=== PATIENT | female | born 1935 | race Caucasian/White ===

== ENCOUNTER 2017-07-30 11:21 | Emergency (ER) | payer MEDICARE, OTHER ==
[2014-10-05 12:21] VITALS: Ht 172.7 cm; Wt 74.8 kg
[~2017-07-30] VITALS: Ht 172.7 cm; Wt 74.8 kg
[~2017-07-30 11:21] MED LIST changes: -FERR-53 PO; +FERR325T14 PO; -LORA-1455 PO; -OXYB5TAB80 PO
--- NOTE | 2017-07-30 11:25 | ER Report ---
History and Physical Time Seen By MD: 11:24 HPI/ROS CHIEF COMPLAINT: Nausea, stomach discomfort, headache, high blood pressure. HISTORY OF PRESENT ILLNESS: 81-year-old female patient presents to emergency room with complaint of nausea, some discomfort, headache, high blood pressure and urinary incontinence. Patient states that this has been going on since earlier today. She denies having any fevers, chills. Patient states she vomited a small amount 1. She states that she is not taking any medication for this. She states that she has been wearing several pads as she is leaking so much. She states that she wasn't feeling well and wanted to be evaluated. Patient does live at [facility]. Patient states she does have some pressure to her chest. REVIEW OF SYSTEMS: Respiratory: No cough, no dyspnea. Cardiovascular: As noted above. Gastrointestinal: As noted above. Musculoskeletal: No back pain. Allergies: Coded Allergies: Penicillins (Verified Allergy, Severe, hives, 05/18/17) Sulfa (Sulfonamide Antibiotics) (Verified Allergy, Severe, hives, 05/18/17 ) fluorescein (Verified Allergy, Severe, anaphylaxis, 05/18/17) codeine (Verified Allergy, Intermediate, 05/18/17) erythromycin base (Verified Allergy, Mild, 05/18/17) rofecoxib (Verified Allergy, Unknown, 05/18/17) morphine (Verified Adverse Reaction, Mild, GI upset, 05/18/17) Home Meds Active Scripts Lorazepam (ATIVAN) 0.5 Mg Tablet, 0.5 TAB PO BID, #7 TAB Prov:ASUNCION RICE 07/30/17 Oxybutynin Chloride (OXYBUTYNIN CHLORIDE ER) 5 Mg Tab.er.24, 5 MG PO QDAY for 14 Days, #14 TAB.SA Prov:ASUNCION RICE 07/30/17 Trazodone Hcl (TRAZODONE HCL) 100 Mg Tablet, 1 TAB PO QHS, #90 TAB 1 Refill Prov:MANUEL TAN APRN-C 07/24/17 Levothyroxine Sodium (LEVOTHYROXINE SODIUM) 100 Mcg Tablet, 1 TAB PO QDAY, #90 TAB 0 Refills Prov:MANUEL TAN APRN-C 07/18/17 Pantoprazole Sodium (PROTONIX) 40 Mg Tablet.dr, 1 CAP PO QDAY, #90 TAB.SR 4 Refills Prov:JULIO REYEZ MD 07/18/17 Warfarin Sodium (WARFARIN SODIUM) 5 Mg Tablet, 5 MG PO QDAY for 30 Days, #102 TAB 2 Refills [place] 5 MG, M 5 MG, Tu 5 MG, W 7.5 MG, Th 5 MG, F 5 MG, Sa 7.5 MG Prov:BUZZ CROSS PHARMD 07/16/17 Folic Acid (FOLIC ACID) 1 Mg Tablet, 1 TAB PO QDAY, #90 TAB 3 Refills Prov:MANUEL TAN APRN INTERNAL SALES ENGINEER-C 05/21/17 Clonidine Hcl (CLONIDINE HCL) 0.1 Mg Tablet, 1 TAB PO QHS, #30 TAB 5 Refills Prov:JULIO REYEZ MD 05/07/17 Ferrous Sulfate (FERROUS SULFATE) 325 Mg Tablet, 1 TAB PO BID, #180 TAB 3 Refills Prov:JULIO REYEZ MD 03/27/17 Polyethylene Glycol 3350 (MIRALAX) 17 Gm Powd.pack, 17 GM PO QDAY Y for CONSTIPATION, #30 PKT 3 Refills Prov:JULIO REYEZ MD 02/22/17 Valsartan (Valsartan) 320 Mg Tablet, 1 TAB PO DAILY, #90 TAB 4 Refills Prov:JULIO REYEZ MD 01/23/17 Pen Needle, Diabetic (Insulin Pen Needle) 31 Gauge X 1/6" Dis.needle, EA MC Q30D , #100 12 Refills USE TO ADMINISTER INSULIN DAILY Prov:JULIO REYEZ MD 01/16/17 Insulin Glargine,Hum.rec.anlog (LANTUS SOLOSTAR) 100 Unit/1 Ml Insuln.pen, 20 UNIT SQ DAILY, #1 BOX 12 Refills Prov:JULIO REYEZ MD 10/31/16 Blood Sugar Diagnostic (FREESTYLE LITE STRIPS) 1 Each Strip, 2 EACH MC Q30D, # 100 STRIP 11 Refills Use to test blood sugars twice daily Prov:JULIO REYEZ MD 09/19/16 Albuterol Sulfate (ALBUTEROL SULFATE) 2.5 Mg/0.5 Ml Vial.neb, 2.5 MG IH Q1H Y for WHEEZING, #90 INHALER 4 Refills Prov:MANUEL TAN APRN INTERNAL SALES ENGINEER-C 06/19/16 Aspirin (ASPIRIN) 325 Mg Tablet, 1 TAB PO Q4-6H Y for PAIN, #30 TAB 4 Refills to use for chest pain PRN Prov:MANUEL TAN APRN INTERNAL SALES ENGINEER-C 06/15/16 Polyvinyl Alcohol/Povidone (ARTIFICIAL TEARS DROPS) 15 Ml Drops, 1 DROP OP PRN, #1 BOTTLE 4 Refills 1 drop into each eye as needed for dry or irritated eyes Prov:MANUEL TNA APRN INTERNAL SALES ENGINEER-C 06/15/16 Calcium Carbonate (TUMS) 300 Mg Tab.chew, 2 TAB PO Q2H Y for GAS/HEARTBURN, #60 TAB.CHEW 5 Refills Prov:MANUEL TAN APRNP-C 06/15/16 Acetaminophen (ACETAMINOPHEN) 500 Mg Tablet, 1 TAB PO Q4-6H Y for PAIN, #30 TAB 4 Refills Prov:MANUEL TAN APRN INTERNAL SALES ENGINEER-C 06/15/16 Vitamin B Complex (VITAMIN B COMPLEX) 1 Each Capsule, 1 TAB PO DAILY, #30 CAPSULE 11 Refills daily in the afternoon Prov:MANUEL TAN APRN INTERNAL SALES ENGINEER-C 06/15/16 Cyanocobalamin (Vitamin B-12) (VITAMIN B-12) 500 Mcg Tablet, 1 TAB PO DAILY, # 90 TAB 3 Refills Prov:MANUEL TAN APRN INTERNAL SALES ENGINEER-C 06/15/16 Lactobacillus Acidophilus (ACIDOPHILUS LACTOBACILLUS) 1 Each Capsule, 1 TAB PO QDAY, #90 CAPSULE 3 Refills Prov:MANUEL TAN APRN INTERNAL SALES ENGINEER-C 06/15/16 Hydrocortisone Acetate (HYDROCORTISONE ACETATE) 25 Mg Supp.rect, 1 SUPP.RECT RC BID, #60 SUPP.RECT Prov:MANUEL TAN APRN INTERNAL SALES ENGINEER-C 06/15/16 Carvedilol (CARVEDILOL) 12.5 Mg Tablet, 1 TAB PO BID, #180 TAB 2 Refills Prov:MANUEL TAN APRN INTERNAL SALES ENGINEER-C 06/15/16 Cholecalciferol (Vitamin D3) (VITAMIN D3) 1,000 Unit Capsule, 1000 UNIT PO BID, #60 CAPSULE 11 Refills Prov:MANUEL TAN APRN INTERNAL SALES ENGINEER-C 06/15/16 Nitroglycerin (NITROSTAT) 0.4 Mg Subl, 0.4 MG SL Q5MIN, #15 TAB 0 Refills Prov:LESLIE BILL MD 08/04/15 Reported Medications Magnesium Hydroxide (MILK OF MAGNESIA) 400 Mg/5 Ml Oral.susp, 5 ML PO PRN, BOTTLE 05/18/17 Mag Hydrox/Al Hydrox/Simeth (VT ACID SUSPENSION) 355 Ml Oral.susp, 5 ML PO BID Y for DYSPEPSIA 05/18/17 Loperamide HCl (Imodium A-D) 2 Mg Capsule, 1 CAP PO after each loose 05/18/17 Acetaminophen (Acetaminophen) 325 Mg Capsule, 1-2 TAB PO Q4-6H 05/18/17 Amlodipine Besylate (AMLODIPINE BESYLATE) 5 Mg Tablet, 1 TAB PO QDAY, TAB 05/07/17 Atorvastatin Calcium (ATORVASTATIN CALCIUM) 10 Mg Tablet, 1 TAB PO QDAY, TAB 05/07/17 Vit A/Vit C/Vit E/Zinc/Copper (PRESERVISION AREDS TABLET) 1 Each Tablet, 1 TAB PO BID, TAB 06/26/16 Oxygen (Oxygen) 2 L Inha, 2 L INH cont 10/22/12 Past Medical/Surgical History Patient has a past medical history of TIA, CVA, migraine, VT, angina, A. fib, DVT, PE, hypertension, hyperlipidemia, asthma, pneumonia, COPD, cholecystitis, urinary frequency, urinary incontinence, frequent UTIs, arthritis, back pain, diabetes, depression, skin cancer. Patient has surgical history of CABG, coronary stents, pacemaker, cholecystectomy, EGD, bladder repair, hysterectomy, knee surgery, neck surgery, right shoulder surgery, cataract surgery, skin biopsy. Patient has a family medical history of cancer, CAD, stroke. Reviewed Nurses Notes: Yes Hx Smoking: Yes Smoking Status: Former Smoker Exposure to Second Hand Smoke?: No Hx Substance Use Disorder: No Hx Alcohol Use: No Constitutional Vital Sign - Last 24 Hours 07/30/17 07/30/17 07/30/17 07/30/17 11:19 11:21 11:22 11:30 Temp 97.5 Pulse 60 ??? Resp 16 B/P (MAP) 150/120 150/120 (130) 161/104 (123) Pulse Ox 97 O2 Delivery Nasal Cannula 07/30/17 07/30/17 07/30/17 07/30/17 11:36 11:40 11:51 11:56 Pulse 60 ? Resp 14 Pulse Ox 97 O2 Flow Rate 3.0 07/30/17 07/30/17 07/30/17 07/30/17 12:00 12:26 12:30 12:41 Pulse 60 60 Resp 8 18 B/P (MAP) 148/94 (112) 148/81 (103) Pulse Ox 99 99 07/30/17 07/30/17 07/30/17 07/30/17 12:56 13:00 13:11 13:26 Pulse 60 65 60 Resp 8 13 19 B/P (MAP) 160/100 (120) Pulse Ox 98 98 98 07/30/17 07/30/17 13:30 13:41 Pulse 60 Resp 18 B/P (MAP) 132/65 (87) Pulse Ox 98 Intake and Output 07/30/17 07/30/17 07/31/17 15:00 23:00 07:00 Output Total 250 ml Balance -250 ml Physical Exam General Appearance: The patient is alert, has no immediate need for airway protection and no current signs of toxicity. ENT: Tympanic membranes are pearly-dela cruz, auditory canals are patent, mixed mucous membranes moist. Respiratory: Chest is non tender, lungs are clear to auscultation. Cardiac: regular rate and rhythm Gastrointestinal: Abdomen is soft and non tender, no masses, bowel sounds normal. Musculoskeletal: Neck: Neck is supple and tender in the left upper quadrant. Extremities have full range of motion and are non tender. Skin: No rashes or lesions. DIFFERENTIAL DIAGNOSIS: After history and physical exam differential diagnosis was considered for urinary tract infection, diverticulitis, VT, pneumonia. Medical Decision Making Data Points Result Diagram: 07/30/17 1123 07/30/17 1123 Laboratory Hematology Test 07/30/17 11:23 07/30/17 12:50 Red Blood Count 5.29 M/uL (4.17-5.56) Mean Corpuscular Volume 83.2 fL (80.0-96.0) Mean Corpuscular Hemoglobin 28.1 pg (26.0-33.0) Mean Corpuscular Hemoglobin Concent 33.8 g/dL (32.0-36.0) Red Cell Distribution Width 14.1 % (11.5-14.5) Mean Platelet Volume 8.2 fL (7.2-11.1) Neutrophils (%) (Auto) 65.8 % (39.4-72.5) Lymphocytes (%) (Auto) 15.5 % (17.6-49.6) Monocytes (%) (Auto) 12.8 % (4.1-12.4) Eosinophils (%) (Auto) 4.9 % (0.4-6.7) Basophils (%) (Auto) 1.0 % (0.3-1.4) Nucleated RBC Relative Count (auto) 0.0 /100WBC Neutrophils # (Auto) 2.4 K/uL (2.0-7.4) Lymphocytes # (Auto) 0.6 K/uL (1.3-3.6) Monocytes # (Auto) 0.5 K/uL (0.3-1.0) Eosinophils # (Auto) 0.2 K/uL (0.0-0.5) Basophils # (Auto) 0.0 K/uL (0.0-0.1) Nucleated RBC Absolute Count (auto) 0.00 K/uL Sodium Level 140 mmol/L (137-145) Potassium Level 4.0 mmol/L (3.5-5.0) Chloride Level 100 mmol/L (98-107) Carbon Dioxide Level 29 mmol/L (22-31) Blood Urea Nitrogen 15 mg/dl (7-18) Creatinine 0.70 mg/dl (0.52-1.04) Glomerular Filtration Rate Calc > 60.0 Random Glucose 134 mg/dl (75-110) Calcium Level 9.0 mg/dl (8.4-10.2) Total Bilirubin 0.6 mg/dl (0.2-1.3) Aspartate Amino Transf (AST/SGOT) 34 U/L (0-35) Alanine Aminotransferase (ALT/SGPT) 35 U/L (0-56) Alkaline Phosphatase 90 U/L (0-126) Troponin I < 0.012 ng/ml Total Protein 8.1 gm/dl (6.3-8.2) Albumin 4.6 g/dl (3.5-5.0) Amylase Level 61 U/L (0-110) Lipase 97 U/L (23-300) Urine Color Straw Urine Clarity Clear Urine pH 8.0 pH (4.8-9.5) Urine Specific [place] 1.010 Urine Protein Negative mg/dL (NEGATIVE) Urine Glucose (UA) Negative mg/dL (NEGATIVE) Urine Ketones Negative mg/dL (NEGATIVE) Urine Blood Negative (NEGATIVE) Urine Nitrite Negative (NEGATIVE) Urine Bilirubin Negative (NEGATIVE) Urine Urobilinogen Negative mg/dL (0.2-1.9) Urine Leukocyte Esterase Negative (NEGATIVE) Urine RBC None /HPF (0-2/HPF) Urine WBC <1 /HPF (0-5/HPF) Urine Squamous Epithelial Cells None /LPF (NONE-FEW) Urine Bacteria Negative /HPF (NONE-FEW) Urine Mucus None /HPF (NONE-FEW) Chemistry Test 07/30/17 11:23 07/30/17 12:50 White Blood Count 3.7 k/uL (4.5-11.0) Red Blood Count 5.29 M/uL (4.17-5.56) Hemoglobin 14.9 g/dL (12.0-16.0) Hematocrit 44.0 % (34.0-47.0) Mean Corpuscular Volume 83.2 fL (80.0-96.0) Mean Corpuscular Hemoglobin 28.1 pg (26.0-33.0) Mean Corpuscular Hemoglobin Concent 33.8 g/dL (32.0-36.0) Red Cell Distribution Width 14.1 % (11.5-14.5) Platelet Count 200 K/uL (150-450) Mean Platelet Volume 8.2 fL (7.2-11.1) Neutrophils (%) (Auto) 65.8 % (39.4-72.5) Lymphocytes (%) (Auto) 15.5 % (17.6-49.6) Monocytes (%) (Auto) 12.8 % (4.1-12.4) Eosinophils (%) (Auto) 4.9 % (0.4-6.7) Basophils (%) (Auto) 1.0 % (0.3-1.4) Nucleated RBC Relative Count (auto) 0.0 /100WBC Neutrophils # (Auto) 2.4 K/uL (2.0-7.4) Lymphocytes # (Auto) 0.6 K/uL (1.3-3.6) Monocytes # (Auto) 0.5 K/uL (0.3-1.0) Eosinophils # (Auto) 0.2 K/uL (0.0-0.5) Basophils # (Auto) 0.0 K/uL (0.0-0.1) Nucleated RBC Absolute Count (auto) 0.00 K/uL Glomerular Filtration Rate Calc > 60.0 Calcium Level 9.0 mg/dl (8.4-10.2) Total Bilirubin 0.6 mg/dl (0.2-1.3) Aspartate Amino Transf (AST/SGOT) 34 U/L (0-35) Alanine Aminotransferase (ALT/SGPT) 35 U/L (0-56) Alkaline Phosphatase 90 U/L (0-126) Troponin I < 0.012 ng/ml Total Protein 8.1 gm/dl (6.3-8.2) Albumin 4.6 g/dl (3.5-5.0) Amylase Level 61 U/L (0-110) Lipase 97 U/L (23-300) Urine Color Straw Urine Clarity Clear Urine pH 8.0 pH (4.8-9.5) Urine Specific [place] 1.010 Urine Protein Negative mg/dL (NEGATIVE) Urine Glucose (UA) Negative mg/dL (NEGATIVE) Urine Ketones Negative mg/dL (NEGATIVE) Urine Blood Negative (NEGATIVE) Urine Nitrite Negative (NEGATIVE) Urine Bilirubin Negative (NEGATIVE) Urine Urobilinogen Negative mg/dL (0.2-1.9) Urine Leukocyte Esterase Negative (NEGATIVE) Urine RBC None /HPF (0-2/HPF) Urine WBC <1 /HPF (0-5/HPF) Urine Squamous Epithelial Cells None /LPF (NONE-FEW) Urine Bacteria Negative /HPF (NONE-FEW) Urine Mucus None /HPF (NONE-FEW) Urinalysis Test 07/30/17 12:50 Urine Color Straw Urine Clarity Clear Urine pH 8.0 pH (4.8-9.5) Urine Specific [place] 1.010 Urine Protein Negative mg/dL (NEGATIVE) Urine Glucose (UA) Negative mg/dL (NEGATIVE) Urine Ketones Negative mg/dL (NEGATIVE) Urine Blood Negative (NEGATIVE) Urine Nitrite Negative (NEGATIVE) Urine Bilirubin Negative (NEGATIVE) Urine Urobilinogen Negative mg/dL (0.2-1.9) Urine Leukocyte Esterase Negative (NEGATIVE) Urine RBC None /HPF (0-2/HPF) Urine WBC <1 /HPF (0-5/HPF) Urine Squamous Epithelial Cells None /LPF (NONE-FEW) Urine Bacteria Negative /HPF (NONE-FEW) Urine Mucus None /HPF (NONE-FEW) EKG/Imaging EKG Interpretation 12 lead EKG: Rhythm: normal sinus rhythm [place]: normal QRS: normal ST segments: normal Imaging Exam type: CHEST PA AND LAT History: chest pain Comparison: April 30, 2017. Findings: Mild chronic. Bronchial thickening is again seen throughout the lungs. Others no evidence of focal infiltrates pleural effusions or pulmonary edema. Cardiac silhouette is upper limits of normal in size. There are sternotomy sutures present, coronary artery stent and and dual lead pacemaker. Post surgical changes of the right shoulder also again noted. Incompletely imaged are postsurgical changes of the lower cervical spine. There is moderate ectasia the thoracic aorta and moderate spondylotic changes of the thoracic spine IMPRESSION: 1. Chronic peribronchial thickening although no evidence of acute pulmonary consolidation Report Dictated By: Grace Holman MD at 07/30/2017 12:26 PM Report E-Signed By: Grace Holman MD at 07/30/2017 12:28 PM ED Course/Re-evaluation ED Course Patient was admitted to an exam room, history and physical were obtained. Differential diagnoses were considered. On examination lungs are clear, heart is regular, patient was alert and oriented. Her blood pressure initially was elevated at 150/120. An IV was started, CBC, CMP, urinalysis, a troponin, EKG were done. The labs were unremarkable. A chest x-ray was also done. That showed no acute cardiopulmonary processes. On reevaluation patient was having significant cramping in her lower extremities. I did try to massage was out for a few moments. There is no improvement. We did give the patient 0.5 mg of Ativan IV. That helped significantly with her cramping. Patient states she's feeling significantly improved after that. I did discuss the findings of the x- ray as well as labs with patient. Patient had a normal EKG. We will go ahead and discharge patient home at this time. Patient was given a prescription for Ativan 0.5 mg, one half tab twice a day as needed for spasm. We will also treat her bladder spasms with oxybutynin and have her follow-up with Dr. Conner in the next 2 weeks. Patient verbalized understanding and agreement. Blood pressure dropped down to 132/64 prior to discharge. We will go ahead and discharge patient back to [facility]. Decision to Disposition Date: Jul 30, 2017 Decision to Disposition Time: 14:03 Depart Departure Latest Vital Signs Vital Signs Date Time Temp Pulse Resp B/P (MAP) Pulse Ox O2 Delivery O2 Flow Rate FiO2 07/30/17 13:41 60 18 98 07/30/17 13:30 132/65 (87) 07/30/17 11:40 3.0 07/30/17 11:19 97.5 Nasal Cannula Impression: Primary Impression: Viral syndrome Additional Impressions: Muscle spasm Bladder spasm Condition: Improved Disposition: HOME OR SELF-CARE Referrals: JULIO REYEZ MD (PCP) New Scripts Lorazepam (ATIVAN) 0.5 Mg Tablet 0.5 TAB PO BID, #7 TAB Prov: ASUNCION RICE 07/30/17 Oxybutynin Chloride (OXYBUTYNIN CHLORIDE ER) 5 Mg Tab.er.24 5 MG PO QDAY for 14 Days, #14 TAB.SA Prov: ASUNCION RICE 07/30/17 Patient Instructions: Viral Syndrome (ED) Additional Instructions: Increase fluid intake. Get plenty of rest. Follow up with your primary care provider in the next 3-4 days. Follow up with Dr. Conner in the next 1-2 weeks. Return to the ER if condition worsens. Take your medication as prescribed. Problem Qualifiers ASUNCION RICE Jul 30, 2017 11:25
[2017-07-30 11:44] LABS: PLATELET COUNT, AUTOMATED 200 K/uL (150-450)
--- NOTE | 2017-07-30 12:19 | EKG ---
FACILITY: [facility] PATIENT NAME: LACI QUIROZ : [id number] MR: [id number] V: [id number] EXAM DATE: ORDERING PHYSICIAN: ASUNCION RICE TECHNOLOGIST: Steven Curry Reason : Blood Pressure : / mmHG Vent. Rate : 060 BPM Atrial Rate : 060 BPM P-R Int : 206 ms QRS Dur : 084 ms QT Int : 442 ms P-R-T Axes : 000 016 040 degrees QTc Int : [address]-t abnormalities When compared with ECG of 21-SEP-2015 15:25, Unchanged Confirmed by ESCOBAR GILL ([id number]) on 07/31/2017 1:49:43 AM Referred By: Confirmed By:ESCOBAR GILL
--- NOTE | 2017-07-30 12:32 | RADIOLOGY IMAGING REPORT ---
FACILITY: [facility] [place] PATIENT NAME: Reina Ocasio : 1935 MR: [id number] V: [id number] EXAM DATE: ORDERING PHYSICIAN: ASUNCION RICE TECHNOLOGIST: Location: [facility] [place] Patient: Reina Ocasio : 1935 Visit/Account:[id number] Date of Sevice: 07/30/2017 Exam type: CHEST PA AND LAT History: chest pain Comparison: April 30, 2017. Findings: Mild chronic. Bronchial thickening is again seen throughout the lungs. Others no evidence of focal infiltrates pleural effusions or pulmonary edema. Cardiac silhouette is upper limits of normal in si ze. There are sternotomy sutures present, coronary artery stent and and dual lead pacemaker. Post s urgical changes of the right shoulder also again noted. Incompletely imaged are postsurgical changes of the lower cervical spine. There is moderate ectasia the thoracic aorta and moderate spondylotic changes of the thoracic spine IMPRESSION: 1. Chronic peribronchial thickening although no evidence of acute pulmonary consolidation Report Dictated By: Grace Holman MD at 07/30/2017 12:26 PM Report E-Signed By: Grace Holman MD at 07/30/2017 12:28 PM WSN:[email or web address]
[2017-07-30] MEDS ORDERED: ONDANSETRON 4 MG/2 ML VIAL IVP ONE (12:35)
[2017-07-30] MEDS ORDERED: LORazepam 2 MG/ML VIAL IVP ONE (13:10)
[2017-07-30 13:30] VITALS: BP 132/65
[2017-07-30] MEDS ORDERED: OXYB5TAB80 PO (14:01)
[2017-07-30] MEDS ORDERED: LORA-1455 PO (14:01)
== END 2017-07-30 14:47 | disposition home or self-care (01) ==
LOC: ER 11:28
DX: B34.9 Viral infection, unspecified (principal); M62.838 Other muscle spasm; N32.89 Other specified disorders of bladder
CPT/HCPCS: 71046; 81001; 82150; 83690; 84484; 85025; 93005; 96374; 96375; 99284; A4353; J2060; J2405; 82040; 82247; 82310; 82374; 82435; 82565; 82947; 84075; 84132; 84155; 84295; 84450; 84460; 84520

== ENCOUNTER → 2017-07-30 | Outpatient (CLI) | payer MEDICARE, OTHER ==
[2014-10-05 12:21] VITALS: BMI 26.5
[~2017-07-30] MED LIST: ACE325 PO; ACET-2031 PO; ACET-2043 PO; ACET325C PO; ACET500T68 PO; ALB0.5 IH; AMI200 PO; AML5 PO; AMLO-1 PO; AMLO-101 PO; AMLO-96 PO; ASC500 PO; ASCO-182 PO; ASPI-757 PO; ATOR10TA65 PO; ATOR20TA65 PO; BACL-1 PO; BLOO-1777 MC; CA C1TAB85 PO; CALC-521 PO; CALC-547 PO; CALC1CAP19 PO; CALC600T63 PO; CALC600T72 PO; CAR6.25 PO; CARV12.577 PO; CARV12.578 PO; CELE-1 PO; CHOL100059 PO; CLIN300C99 PO; CLO75 PO; CLON-327 PO; CYAN25007 SL; CYAN500T38 PO; DILT240C76 PO; DOCU-416 PO; DOX100 PO; ESOM40CA42 PO; EZET1TAB53 PO; FAM20 PO; FAMO40TA62 PO; FERR-53 PO; FERR159T PO; FERR27TA3 PO; FOL1 PO; FOLI-68 PO; FOLTX PO; GAB300 PO; GABA-1 PO; GABA-549 PO; GUAI600T57 PO; HCTZ25 PO; HUM100VI2 SUBQ; HUM7030I SC; HUM7030I SQ; HYDR25SU34 RC; INSU100I30 SQ; INSU100V26 SC; IRON200V IV; LACT1CAP6 PO; LACT1CAP78 PO; LEV125 PO; LEVO-3 PO; LEVO137T23 PO; LEVO50TA86 PO; LEVO75TA73 PO; LOPE-109 PO; LOPE2CAP15 PO; LOR5/325 PO; LORA-1455 PO; MECL25TA27 PO; MECL25TA9 PO; MEMA10TA18 PO; MEMA10TA19 PO; MIRA50TA PO; MOM PO; MULT1CAP41 PO; NIT4 SL; NITR-105 PO; NSNAS; OFF WARFARIN; ONDA4TAB PO; ONDA4TAB97 PO; OXYB5TAB80 PO; OXYB5TAB86 PO; OXYGEN INH; PANT40TA13 PO; PANT40TA63 PO; PAR20 PO; PARO-46 PO; PARO20TA4 PO; PARO30TA70 PO; PEN1DIS.48 MC; PNEU0.5D3 IM; POLY15DR54 OP; POLY17PO25 PO; POTA2TAB29 PO; RIVA10TA PO; SENN-284 PO; SIMV-42 PO; SOL5 PO; SUCR1TAB85 PO; TRAM-420 PO; TRAZ-133 PO; TRAZ-163 PO; TRILI135PT PO; TRILIPIX; Tramadol Hcl PO; VAL80 PO; VALS160T22 PO; VALS1TAB2 PO; VALS1TAB80 PO; VALS1TAB96 PO; VALS320T PEG; VALS320T PO; VIT-9 PO; VIT1CAPS32 PO; VITA1CAP46 PO; VITA1CAP55 PO; WAR1 PO; WAR75 PO; WARF-18 PO; WARF10TA29 PO; WARF2.5T11 PO; WARFARIN; [UNRECOGNIZED DRUG - CODE] PO; [UNRECOGNIZED DRUG - CODE] PO; [UNRECOGNIZED DRUG - CODE] PO; [UNRECOGNIZED DRUG - CODE] PO; [UNRECOGNIZED DRUG - CODE] TP; iron sulfate PO; lacrilube OU
== END ==
LOC: AMB 10:57
PROVIDERS: ATTEND Nurse Practitioner
DX: E86.0 Dehydration (principal); R42 Dizziness and giddiness; I10 Essential (primary) hypertension; I48.91 Unspecified atrial fibrillation
CPT/HCPCS: A0425; A0427

== ENCOUNTER 2017-08-12 13:29 | Emergency (ER) | payer MEDICARE, OTHER ==
[2014-10-05 12:21] VITALS: Ht 172.7 cm; Wt 74.8 kg
[~2017-08-12] VITALS: Ht 172.7 cm; Wt 74.8 kg
--- NOTE | 2017-08-12 13:37 | ER Report ---
History and Physical Time Seen By MD: 13:36 HPI/ROS CHIEF COMPLAINT: Chest pain HISTORY OF PRESENT ILLNESS: This is an 81-year-old female who presents to the emergency department for chest pain. The patient is a resident of [facility]. Patient states she woke up at about 4:30 this morning felt fine, went to breakfast at about 8:00 while she was sitting there she began to have some chest pain migrating into her left chest up into her jaw bilaterally. Patient denies nausea or vomiting. She was given 3 nitroglycerin at [facility] with no relief of her chest pain, at which time they elected to send her to the emergency department for further evaluation. Patient arrives alert and oriented no acute distress. Patient also states that she has had some increased shortness of breath this morning along with chest pressure. Patient denies aches , chills. Patient also states that it's been about 3 days since her last normal bowel movement, she's had small firm stools since then but not normal. REVIEW OF SYSTEMS: Constitutional: No fever, no chills. Eyes: No discharge. ENT: No sore throat. Cardiovascular: As above. Respiratory: As above. Gastrointestinal: No abdominal pain, no vomiting. Genitourinary: No hematuria. Musculoskeletal: No back pain. Skin: No rashes. Neurological: No headache. Allergies: Coded Allergies: Penicillins (Verified Allergy, Severe, hives, 08/12/17) Sulfa (Sulfonamide Antibiotics) (Verified Allergy, Severe, hives, 08/12/17) fluorescein (Verified Allergy, Severe, anaphylaxis, 08/12/17) codeine (Verified Allergy, Intermediate, 08/12/17) erythromycin base (Verified Allergy, Mild, 08/12/17) rofecoxib (Verified Allergy, Unknown, 08/12/17) morphine (Verified Adverse Reaction, Mild, GI upset, 08/12/17) Home Meds Active Scripts Oxybutynin Chloride (OXYBUTYNIN CHLORIDE ER) 5 Mg Tab.er.24, 1 TAB PO QDAY, #90 TAB.SA 1 Refill Prov:JULIO REYEZ MD 08/09/17 Trazodone Hcl (TRAZODONE HCL) 100 Mg Tablet, 1 TAB PO QHS, #90 TAB 1 Refill Prov:MANUEL TAN APRN APPLICATION ARCHITECT-C 07/24/17 Levothyroxine Sodium (LEVOTHYROXINE SODIUM) 100 Mcg Tablet, 1 TAB PO QDAY, #90 TAB 0 Refills Prov:MANUEL TAN APRN [facility] 07/18/17 Pantoprazole Sodium (PROTONIX) 40 Mg Tablet.dr, 1 CAP PO QDAY, #90 TAB.SR 4 Refills Prov:JULIO REYEZ MD 07/18/17 Warfarin Sodium (WARFARIN SODIUM) 5 Mg Tablet, 5 MG PO QDAY for 30 Days, #102 TAB 2 Refills Pineda 5 MG, M 5 MG, Tu 5 MG, W 7.5 MG, Th 5 MG, F 5 MG, Sa 7.5 MG Prov:BUZZ CROSS PHARMD 07/16/17 Folic Acid (FOLIC ACID) 1 Mg Tablet, 1 TAB PO QDAY, #90 TAB 3 Refills Prov:MANUEL TAN APRN APPLICATION ARCHITECT-C 05/21/17 Clonidine Hcl (CLONIDINE HCL) 0.1 Mg Tablet, 1 TAB PO QHS, #30 TAB 5 Refills Prov:JULIO REYEZ MD 05/07/17 Ferrous Sulfate (FERROUS SULFATE) 325 Mg Tablet, 1 TAB PO BID, #180 TAB 3 Refills Prov:JULIO REYEZ MD 03/27/17 Polyethylene Glycol 3350 (MIRALAX) 17 Gm Powd.pack, 17 GM PO QDAY Y for CONSTIPATION, #30 PKT 3 Refills Prov:JULIO REYEZ MD 02/22/17 Valsartan (Valsartan) 320 Mg Tablet, 1 TAB PO DAILY, #90 TAB 4 Refills Prov:JULIO REYEZ MD 01/23/17 Pen Needle, Diabetic (Insulin Pen Needle) 31 Gauge X 1/6" Dis.needle, EA MC Q30D , #100 12 Refills USE TO ADMINISTER INSULIN DAILY Prov:JULIO REYEZ MD 01/16/17 Insulin Glargine,Hum.rec.anlog (LANTUS SOLOSTAR) 100 Unit/1 Ml Insuln.pen, 20 UNIT SQ DAILY, #1 BOX 12 Refills Prov:JULIO REYEZ MD 10/31/16 Blood Sugar Diagnostic (FREESTYLE LITE STRIPS) 1 Each Strip, 2 EACH MC Q30D, # 100 STRIP 11 Refills Use to test blood sugars twice daily Prov:JULIO REYEZ MD 09/19/16 Albuterol Sulfate (ALBUTEROL SULFATE) 2.5 Mg/0.5 Ml Vial.neb, 2.5 MG IH Q1H Y for WHEEZING, #90 INHALER 4 Refills Prov:MANUEL TAN APRNP-C 06/19/16 Aspirin (ASPIRIN) 325 Mg Tablet, 1 TAB PO Q4-6H Y for PAIN, #30 TAB 4 Refills to use for chest pain PRN Prov:MANUEL TAN APRNP-C 06/15/16 Polyvinyl Alcohol/Povidone (ARTIFICIAL TEARS DROPS) 15 Ml Drops, 1 DROP OP PRN, #1 BOTTLE 4 Refills 1 drop into each eye as needed for dry or irritated eyes Prov:MANUEL TAN APRNP-C 06/15/16 Calcium Carbonate (TUMS) 300 Mg Tab.chew, 2 TAB PO Q2H Y for GAS/HEARTBURN, #60 TAB.CHEW 5 Refills Prov:MANUEL TAN APRNP-C 06/15/16 Acetaminophen (ACETAMINOPHEN) 500 Mg Tablet, 1 TAB PO Q4-6H Y for PAIN, #30 TAB 4 Refills Prov:MANUEL TAN APRNP-C 06/15/16 Vitamin B Complex (VITAMIN B COMPLEX) 1 Each Capsule, 1 TAB PO DAILY, #30 CAPSULE 11 Refills daily in the afternoon Prov:MANUEL TAN APRN APPLICATION ARCHITECT-C 06/15/16 Cyanocobalamin (Vitamin B-12) (VITAMIN B-12) 500 Mcg Tablet, 1 TAB PO DAILY, # 90 TAB 3 Refills Prov:MANUEL TAN APRN APPLICATION ARCHITECT-C 06/15/16 Lactobacillus Acidophilus (ACIDOPHILUS LACTOBACILLUS) 1 Each Capsule, 1 TAB PO QDAY, #90 CAPSULE 3 Refills Prov:MANUEL TAN APRN APPLICATION ARCHITECT-C 06/15/16 Hydrocortisone Acetate (HYDROCORTISONE ACETATE) 25 Mg Supp.rect, 1 SUPP.RECT RC BID, #60 SUPP.RECT Prov:MANUEL TAN APRN APPLICATION ARCHITECT-C 06/15/16 Carvedilol (CARVEDILOL) 12.5 Mg Tablet, 1 TAB PO BID, #180 TAB 2 Refills Prov:MANUEL TAN MARCELA APPLICATION ARCHITECT-C 06/15/16 Cholecalciferol (Vitamin D3) (VITAMIN D3) 1,000 Unit Capsule, 1000 UNIT PO BID, #60 CAPSULE 11 Refills Prov:MANUEL TAN MARCELA APPLICATION ARCHITECT-C 06/15/16 Nitroglycerin (NITROSTAT) 0.4 Mg Subl, 0.4 MG SL Q5MIN, #15 TAB 0 Refills Prov:LESLIE BILL MD 08/04/15 Reported Medications Magnesium Hydroxide (MILK OF MAGNESIA) 400 Mg/5 Ml Oral.susp, 5 ML PO PRN, BOTTLE 05/18/17 Mag Hydrox/Al Hydrox/Simeth (DE ACID SUSPENSION) 355 Ml Oral.susp, 5 ML PO BID Y for DYSPEPSIA 05/18/17 Loperamide HCl (Imodium A-D) 2 Mg Capsule, 1 CAP PO after each loose 05/18/17 Acetaminophen (Acetaminophen) 325 Mg Capsule, 1-2 TAB PO Q4-6H 05/18/17 Amlodipine Besylate (AMLODIPINE BESYLATE) 5 Mg Tablet, 1 TAB PO QDAY, TAB 05/07/17 Atorvastatin Calcium (ATORVASTATIN CALCIUM) 10 Mg Tablet, 1 TAB PO QDAY, TAB 05/07/17 Vit A/Vit C/Vit E/Zinc/Copper (PRESERVISION AREDS TABLET) 1 Each Tablet, 1 TAB PO BID, TAB 06/26/16 Oxygen (Oxygen) 2 L Inha, 2 L INH cont 10/22/12 Discontinued Scripts Lorazepam (ATIVAN) 0.5 Mg Tablet, 0.5 TAB PO BID, #7 TAB Prov:ASUNCION RICE [facility] 07/30/17 Oxybutynin Chloride (OXYBUTYNIN CHLORIDE ER) 5 Mg Tab.er.24, 5 MG PO QDAY for 14 Days, #14 TAB.SA Prov:ASUNCION RICE [facility] 07/30/17 Hx Smoking: Yes Smoking Status: Former Smoker Exposure to Second Hand Smoke?: No Hx Substance Use Disorder: No Hx Alcohol Use: No Constitutional Vital Sign - Last 24 Hours 08/12/17 08/12/17 08/12/17 08/12/17 13:36 13:36 13:37 13:39 Temp 97.7 Pulse 61 Resp 18 B/P (MAP) 162/154 (157) 153/71 (98) Pulse Ox 92 O2 Delivery Room Air O2 Flow Rate 2.0 08/12/17 08/12/17 08/12/17 08/12/17 14:00 14:24 14:30 15:00 Pulse 60 60 60 Resp 9 7 24 B/P (MAP) 123/71 (88) 141/65 (90) 137/66 (89) 132/65 (87) Pulse Ox 97 95 98 08/12/17 08/12/17 08/12/17 08/12/17 16:00 16:30 17:00 17:30 Pulse 60 78 60 60 Resp 13 14 12 20 B/P (MAP) 129/58 (81) 155/63 (93) 104/74 (84) 148/50 (82) Pulse Ox 100 93 99 08/12/17 08/12/17 18:00 18:00 Pulse 60 Resp 7 B/P (MAP) 134/62 (86) 134/62 (86) Pulse Ox 99 Physical Exam General Appearance: The patient is alert, has no immediate need for airway protection and no signs of toxicity. Eyes: Pupils equal and round no pallor or injection. ENT, Mouth: Mucous membranes are moist. Respiratory: There are no retractions, lungs are clear to auscultation. Cardiovascular: Regular rate and rhythm, no murmurs, clicks or rubs. Gastrointestinal: Abdomen is soft with tenderness to the left upper and lower quadrants, no masses, hypoactive bowel sounds in the upper quadrants, very few distant tinkles in the lower quadrants. Neurological: Alert and oriented 4. Moving all extremity. Following all commands. No focal neuro deficits. Skin: Warm and dry, no rashes. Musculoskeletal: Neck is supple non tender. Extremities are nontender, nonswollen and have full range of motion. DIFFERENTIAL DIAGNOSIS: After history and physical exam differential diagnosis was considered for chest pain including but not limited to myocardial ischemia, pericarditis pulmonary embolus, chest wall pain, pleural inflammation and pulmonary infectious causes, constipation bowel obstruction. Medical Decision Making Data Points Result Diagram: 08/12/17 1350 08/12/17 1350 Laboratory Hematology Test 08/12/17 13:50 08/12/17 17:42 Red Blood Count 4.94 M/uL (4.17-5.56) Mean Corpuscular Volume 84.0 fL (80.0-96.0) Mean Corpuscular Hemoglobin 27.3 pg (26.0-33.0) Mean Corpuscular Hemoglobin Concent 32.5 g/dL (32.0-36.0) Red Cell Distribution Width 14.3 % (11.5-14.5) Mean Platelet Volume 9.3 fL (7.2-11.1) Neutrophils (%) (Auto) 74.9 % (39.4-72.5) Lymphocytes (%) (Auto) 11.7 % (17.6-49.6) Monocytes (%) (Auto) 11.0 % (4.1-12.4) Eosinophils (%) (Auto) 1.8 % (0.4-6.7) Basophils (%) (Auto) 0.6 % (0.3-1.4) Nucleated RBC Relative Count (auto) 0.0 /100WBC Neutrophils # (Auto) 3.8 K/uL (2.0-7.4) Lymphocytes # (Auto) 0.6 K/uL (1.3-3.6) Monocytes # (Auto) 0.6 K/uL (0.3-1.0) Eosinophils # (Auto) 0.1 K/uL (0.0-0.5) Basophils # (Auto) 0.0 K/uL (0.0-0.1) Nucleated RBC Absolute Count (auto) 0.00 K/uL Sodium Level 136 mmol/L (137-145) Potassium Level 3.7 mmol/L (3.5-5.0) Chloride Level 97 mmol/L (98-107) Carbon Dioxide Level 29 mmol/L (22-31) Blood Urea Nitrogen 15 mg/dl (7-18) Creatinine 0.80 mg/dl (0.52-1.04) Glomerular Filtration Rate Calc > 60.0 Random Glucose 184 mg/dl (75-110) Calcium Level 8.9 mg/dl (8.4-10.2) Total Bilirubin 0.9 mg/dl (0.2-1.3) Aspartate Amino Transf (AST/SGOT) 41 U/L (0-35) Alanine Aminotransferase (ALT/SGPT) 41 U/L (0-56) Alkaline Phosphatase 58 U/L (0-126) B-Type Natriuretic Peptide 63 pg/ml (0-100) Total Protein 7.0 gm/dl (6.3-8.2) Albumin 4.1 g/dl (3.5-5.0) Troponin I < 0.012 ng/ml Chemistry Test 08/12/17 13:50 08/12/17 17:42 White Blood Count 5.1 k/uL (4.5-11.0) Red Blood Count 4.94 M/uL (4.17-5.56) Hemoglobin 13.5 g/dL (12.0-16.0) Hematocrit 41.5 % (34.0-47.0) Mean Corpuscular Volume 84.0 fL (80.0-96.0) Mean Corpuscular Hemoglobin 27.3 pg (26.0-33.0) Mean Corpuscular Hemoglobin Concent 32.5 g/dL (32.0-36.0) Red Cell Distribution Width 14.3 % (11.5-14.5) Platelet Count 205 K/uL (150-450) Mean Platelet Volume 9.3 fL (7.2-11.1) Neutrophils (%) (Auto) 74.9 % (39.4-72.5) Lymphocytes (%) (Auto) 11.7 % (17.6-49.6) Monocytes (%) (Auto) 11.0 % (4.1-12.4) Eosinophils (%) (Auto) 1.8 % (0.4-6.7) Basophils (%) (Auto) 0.6 % (0.3-1.4) Nucleated RBC Relative Count (auto) 0.0 /100WBC Neutrophils # (Auto) 3.8 K/uL (2.0-7.4) Lymphocytes # (Auto) 0.6 K/uL (1.3-3.6) Monocytes # (Auto) 0.6 K/uL (0.3-1.0) Eosinophils # (Auto) 0.1 K/uL (0.0-0.5) Basophils # (Auto) 0.0 K/uL (0.0-0.1) Nucleated RBC Absolute Count (auto) 0.00 K/uL Glomerular Filtration Rate Calc > 60.0 Calcium Level 8.9 mg/dl (8.4-10.2) Total Bilirubin 0.9 mg/dl (0.2-1.3) Aspartate Amino Transf (AST/SGOT) 41 U/L (0-35) Alanine Aminotransferase (ALT/SGPT) 41 U/L (0-56) Alkaline Phosphatase 58 U/L (0-126) B-Type Natriuretic Peptide 63 pg/ml (0-100) Total Protein 7.0 gm/dl (6.3-8.2) Albumin 4.1 g/dl (3.5-5.0) Troponin I < 0.012 ng/ml EKG/Imaging EKG Interpretation 12 lead EKG: Rhythm: Electronic atrial paced, 60 bpm. [place]: normal QRS: normal ST segments: No ST segment depression or elevation. No significant changes from the 07/30/2017 EKG. Imaging Location: [facility] [place] Patient: Reina Ocasio : 1935 Visit/Account:[id number] Date of Sevice: 08/12/2017 EXAMINATION: CT abdomen and pelvis with contrast COMPARISON: None. HISTORY: Abdominal pain. PROCEDURE: Multiplanar contrast enhanced CT of the abdomen and pelvis with 75 mL intravenous Isovue 370. One of the following dose optimization techniques was utilized in the performance of this exam: Automated exposure control; adjustment of the mA and/or kV according to the patient's size; or use of an iterative reconstruction technique. Specific details can be referenced in the facility's radiology CT exam operational policy. FINDINGS: Visualized thorax: Left lung base calcified pleural plaques. Pacemaker. No evidence of acute disease in the visualized lower thorax. Liver: Negative. Gallbladder and biliary system: Cholecystectomy. Mild prominence of the intrahepatic and extra hepatic bile ducts with no intrahepatic. No obstructing stone or lesion is identified and unless there is a clinical concern for acute biliary obstruction this is presumably due to the postcholecystectomy state. Spleen: Spleen size is normal. Pancreas: Atrophy. No inflammation. Adrenal glands: Negative. Kidneys and bladder: No renal mass or evidence of an obstructive uropathy. Urinary bladder is unremarkable. Vessels: Advanced aortoiliac and mesenteric atherosclerosis. No abdominal aortic aneurysm. Portal venous system and IVC are within normal limits. Bowel and mesentery: Stomach is within normal limits. No small bowel obstruction. Appendix is not visualized; no pericecal inflammation. Minimal stool in the colon. A few sigmoid diverticula are present. No bowel or mesenteric inflammation. Pelvic organs: Hysterectomy. No adnexal mass. Lymph nodes: No adenopathy. Free air/free fluid: None. Abdominal wall and osseous structures: Abdominal wall is intact. Osseous structures are demineralized. Moderate degenerative disc disease greatest at L3- L4 where there is at least mild canal, lateral recess, and foraminal narrowing. No acute osseous abnormality. IMPRESSION: 1. No findings of acute disease in the abdomen or pelvis. 2. Nonacute findings as detailed above. Report Dictated By: Luis Hickman MD at 08/12/2017 3:43 PM Report E-Signed By: Luis Hickman MD at 08/12/2017 3:52 PM WSN:[id number] PATIENT NAME: Reina Ocasio : 1935 MR: [id number] V: [id number] EXAM DATE: [id number] ORDERING PHYSICIAN: MIKO CARDONA TECHNOLOGIST: Location: [facility] [place] Patient: Reina Ocasio : 1935 Visit/Account:[id number] Date of Sevice: 08/12/2017 ACUTE ABDOMEN SERIES 3 VIEW HISTORY: abd pain, evaluate for constipation COMPARISON: Abdominal series from May 2015. FINDINGS: Dual-lead pacer overlies the left hemithorax. Lungs are without failure or consolidation. Atherosclerotic calcifications are noted within the splenic artery. Nonspecific bowel pattern is noted without evidence of high-grade obstruction. There is gaseous distention of the cecum with an air-fluid level noted. Mild colonic stool burden, mainly in the rectosigmoid colon. No evidence of acute osseous finding. IMPRESSION: 1. Nonspecific bowel pattern without evidence of high-grade obstruction, pneumatosis or free air. 2. Mild gaseous distention of the cecum with air-fluid level. Finding could represent a focal colitis. Report Dictated By: Richie Montoya MD at 08/12/2017 2:20 PM Report E-Signed By: Richie Montoya MD at 08/12/2017 2:24 PM WSN:[id number] ED Course/Re-evaluation Clinical Indication for ER IV: IV Access ED Course The patient was admitted to room. A history and physical were obtained. Differential diagnoses were considered. An IV was started. A CBC, CMP and troponin 2 were drawn. Negative troponin 2. Lab studies unremarkable except for the glucose of 184, patient has a history of diabetes. EKG showing electronic atrial paced, [address] abnormalities. Abdominal series x-ray showing nonspecific bowel pattern without obstruction, mild distention of the cecum with air-fluid level, lungs are without failure or consolidation. Abdomen pelvis CT showing no acute findings. I did review the results with the patient and her son and recommended that she try MiraLAX or this stool softener for her bowel regimen. I also encouraged patient to follow up with her primary care provider for any other concerns that she may have. Patient was also encouraged to return to the emergency department for worsening symptoms. Patient and her son had no other questions or concerns and were discharged home. Decision to Disposition Date: Aug 12, 2017 Decision to Disposition Time: 18:49 Depart Departure Latest Vital Signs Vital Signs Date Time Temp Pulse Resp B/P (MAP) Pulse Ox O2 Delivery O2 Flow Rate FiO2 08/12/17 18:00 60 7 134/62 (86) 99 08/12/17 13:36 2.0 08/12/17 13:36 97.7 Room Air Impression: Primary Impression: Chest pain Condition: Improved Disposition: HOME OR SELF-CARE Referrals: JULIO REYEZ MD (PCP) Patient Instructions: Chest Pain (ED) Additional Instructions: Drink plenty of fluids. Get plenty of rest. Consider adding Mirilax to your daily regimen to help facilitate a regular bowel movements. Continue taking your regular medications. Follow up with your primary care provider within the next 1-2 weeks for follow up. May return to the ED for worsening symptoms. Problem Qualifiers Primary Impression: Chest pain Chest pain type: unspecified Qualified Codes: R07.9 - Chest pain, unspecified MIKO CARDONA APPLICATION ARCHITECT-BC Aug 12, 2017 13:37
[2017-08-12] MEDS ORDERED: ASPIRIN 81 MG CHEW PO ONE (13:55)
[2017-08-12 14:07] LABS: PLATELET COUNT, AUTOMATED 205 K/uL (150-450)
--- NOTE | 2017-08-12 14:23 | EKG ---
FACILITY: [facility] PATIENT NAME: LACI QUIROZ : [id number] MR: [id number] V: [id number] EXAM DATE: ORDERING PHYSICIAN: MIKO CARDONA TECHNOLOGIST: RIZWAN Curry Reason : CHEST PAIN Blood Pressure : / mmHG Vent. Rate : 060 BPM Atrial Rate : 060 BPM P-R Int : 080 ms QRS Dur : 082 ms QT Int : 420 ms P-R-T Axes : 025 053 073 degrees QTc Int : 420 ms Electronic atrial pacemaker Cannot rule out Anterior infarct , age undetermined Abnormal ECG No previous ECGs available Confirmed by YAMILE DOWNS ([id number]) on 08/12/2017 2:59:01 PM Referred By: ALYCIA Confirmed By:YAMILE DOWNS
--- NOTE | 2017-08-12 14:27 | RADIOLOGY IMAGING REPORT ---
[place] [facility] [place] Reina Ocasio : 1935 MR: [id number] V: [id number] EXAM DATE: ORDERING PHYSICIAN: MIKO CARDONA TECHNOLOGIST: Location: [facility] [place] Patient: Reina Ocasio : 1935 Visit/Account:[id number] Date of Sevice: 08/12/2017 ACUTE ABDOMEN SERIES 3 VIEW HISTORY: abd pain, evaluate for constipation COMPARISON: Abdominal series from May 2015. FINDINGS: Dual-lead pacer overlies the left hemithorax. Lungs are without failure or consolidation. Atherosclerotic calcifications are noted within the splenic artery. Nonspecific bowel pattern is noted without evidence of high-grade obstruction. There is gaseous diste ntion of the cecum with an air-fluid level noted. Mild colonic stool burden, mainly in the rectosigmo id colon. No evidence of acute osseous finding. IMPRESSION: 1. Nonspecific bowel pattern without evidence of high-grade obstruction, pneumatosis or free air. 2. Mild gaseous distention of the cecum with air-fluid level. Finding could represent a focal colitis . Report Dictated By: Richie Montoya MD at 08/12/2017 2:20 PM Report E-Signed By: Richie Montoya MD at 08/12/2017 2:24 PM WSN:[id number]
[2017-08-12] MEDS ORDERED: NS 0.9% 50 ML VIAL 50 ML ONE (14:58)
[2017-08-12] MEDS ORDERED: IOPAMIDOL 76% 75 ML INFUS BTL 75 ML ONE (14:58)
--- NOTE | 2017-08-12 15:56 | RADIOLOGY IMAGING REPORT ---
FACILITY: [facility] [place] PATIENT NAME: Reina Ocasio : 1935 MR: [id number] V: [id number] EXAM DATE: ORDERING PHYSICIAN: MIKO CARDONA TECHNOLOGIST: Location: [facility] Patient: Reina Ocasio : 1935 Visit/Account:[id number] Date of Sevice: 08/12/2017 EXAMINATION: CT abdomen and pelvis with contrast COMPARISON: None. HISTORY: Abdominal pain. PROCEDURE: Multiplanar contrast enhanced CT of the abdomen and pelvis with 75 mL intravenous Isovue 3 70. One of the following dose optimization techniques was utilized in the performance of this exam: A utomated exposure control; adjustment of the mA and/or kV according to the patient's size; or use of an iterative reconstruction technique. Specific details can be referenced in the facility's radiolo gy CT exam operational policy. FINDINGS: Visualized thorax: Left lung base calcified pleural plaques. Pacemaker. No evidence of acute disease in the visualized lower thorax. Liver: Negative. Gallbladder and biliary system: Cholecystectomy. Mild prominence of the intrahepatic and extra hepati c bile ducts with no intrahepatic. No obstructing stone or lesion is identified and unless there is a clinical concern for acute biliary obstruction this is presumably due to the postcholecystectomy sta te. Spleen: Spleen size is normal. Pancreas: Atrophy. No inflammation. Adrenal glands: Negative. Kidneys and bladder: No renal mass or evidence of an obstructive uropathy. Urinary bladder is unrema rkable. Vessels: Advanced aortoiliac and mesenteric atherosclerosis. No abdominal aortic aneurysm. Portal akash ous system and IVC are within normal limits. Bowel and mesentery: Stomach is within normal limits. No small bowel obstruction. Appendix is not vis ualized; no pericecal inflammation. Minimal stool in the colon. A few sigmoid diverticula are present . No bowel or mesenteric inflammation. Pelvic organs: Hysterectomy. No adnexal mass. Lymph nodes: No adenopathy. Free air/free fluid: None. Abdominal wall and osseous structures: Abdominal wall is intact. Osseous structures are demineralized . Moderate degenerative disc disease greatest at L3-L4 where there is at least mild canal, lateral re cess, and foraminal narrowing. No acute osseous abnormality. IMPRESSION: 1. No findings of acute disease in the abdomen or pelvis. 2. Nonacute findings as detailed above. Report Dictated By: Luis Hickman MD at 08/12/2017 3:43 PM Report E-Signed By: Luis Hickman MD at 08/12/2017 3:52 PM WSN:[id number]
[2017-08-12 18:00] VITALS: BP 134/62
[2017-08-14] MEDS ORDERED: PARO-46 PO (10:40)
== END 2017-08-12 19:14 | disposition home or self-care (01) ==
LOC: ER 13:43
DX: R07.89 Other chest pain (principal)
CPT/HCPCS: 36415; 74022; 74177; 83880; 84484; 85025; 93005; 99284; J7050; Q9967; 82040; 82247; 82310; 82374; 82435; 82565; 82947; 84075; 84132; 84155; 84295; 84450; 84460; 84520

== ENCOUNTER → 2017-08-12 | Outpatient (REF) | payer MEDICARE, OTHER ==
[2014-10-05 12:21] VITALS: BMI 26.5
[~2017-08-12] MED LIST changes: +FERR-53 PO; -FERR325T14 PO; +LORA-1455 PO; +OXYB5TAB80 PO
== END ==
LOC: ZZSPRING 11:17
PROVIDERS: ATTEND Nurse Practitioner Primary Care
DX: R39.15 Urgency of urination (principal); R82.99 Other abnormal findings in urine; R41.0 Disorientation, unspecified
CPT/HCPCS: 81001; 87088

== ENCOUNTER → 2017-08-13 | Outpatient (CLI) | payer MEDICARE, OTHER ==
[2014-10-05 12:21] VITALS: BMI 26.5
[2017-08-13 08:26] LABS: INR 4.65
== END ==
LOC: ZZSPRING 02:26
PROVIDERS: ATTEND Pharmacist Pharmacotherapy
DX: I26.99 Other pulmonary embolism without acute cor pulmonale (principal)
CPT/HCPCS: 36415; 85610

== ENCOUNTER → 2017-08-15 | Outpatient (CLI) | payer MEDICARE, OTHER ==
[2014-10-05 12:21] VITALS: BMI 26.5
[2017-08-15 11:04] LABS: INR 2.06
== END ==
LOC: LAB 10:38
PROVIDERS: ATTEND Pharmacist Pharmacotherapy
DX: I26.99 Other pulmonary embolism without acute cor pulmonale (principal); I48.91 Unspecified atrial fibrillation
CPT/HCPCS: 36415; 85610

== ENCOUNTER → 2017-08-21 | Outpatient (CLI) | payer MEDICARE, OTHER ==
[2014-10-05 12:21] VITALS: BMI 26.5
[2017-08-21 12:24] LABS: INR 1.69
== END ==
LOC: LAB 11:42
PROVIDERS: ATTEND Internal Medicine
DX: I26.99 Other pulmonary embolism without acute cor pulmonale (principal)
CPT/HCPCS: 36415; 85610

== ENCOUNTER → 2017-08-27 | Outpatient (CLI) | payer MEDICARE, OTHER ==
[2014-10-05 12:21] VITALS: BMI 26.5
[2017-08-27 09:20] LABS: INR 2.01
== END ==
LOC: ZZSPRING 02:35
PROVIDERS: ATTEND Pharmacist Pharmacotherapy
DX: I26.99 Other pulmonary embolism without acute cor pulmonale (principal)
CPT/HCPCS: 36415; 85610

== ENCOUNTER → 2017-09-03 | Outpatient (CLI) | payer MEDICARE, OTHER ==
[2014-10-05 12:21] VITALS: BMI 26.5
[2017-09-03 09:04] LABS: INR 2.31
== END ==
LOC: ZZSPRING 02:04
PROVIDERS: ATTEND Internal Medicine
DX: I48.91 Unspecified atrial fibrillation (principal); I26.99 Other pulmonary embolism without acute cor pulmonale
CPT/HCPCS: 36415; 85610

== ENCOUNTER → 2017-09-17 | Outpatient (CLI) | payer MEDICARE, OTHER ==
[2014-10-05 12:21] VITALS: BMI 26.5
[~2017-09-17] MED LIST changes: -VALS320T PEG; -VALS320T PO; +VALS320T4 PEG; +VALS320T4 PO; -WARF-18 PO; +WARF5TAB23 PO
[2017-09-17 08:49] LABS: INR 2.25
== END ==
LOC: ZZSPRING 02:59
PROVIDERS: ATTEND Pharmacist Pharmacotherapy
DX: I48.91 Unspecified atrial fibrillation (principal); I26.99 Other pulmonary embolism without acute cor pulmonale
CPT/HCPCS: 36415; 85610

== ENCOUNTER → 2017-10-15 | Outpatient (CLI) | payer MEDICARE, OTHER ==
[2014-10-05 12:21] VITALS: BMI 26.5
[~2017-10-15] MED LIST changes: +[UNRECOGNIZED DRUG - CODE] MC
[2017-10-15 08:49] LABS: INR 1.86
== END ==
LOC: ZZSPRING 10-14 08:06
PROVIDERS: ATTEND Pharmacist Pharmacotherapy
DX: I48.91 Unspecified atrial fibrillation (principal); I26.99 Other pulmonary embolism without acute cor pulmonale
CPT/HCPCS: 36415; 85610

== ENCOUNTER → 2017-10-29 | Outpatient (CLI) | payer MEDICARE, OTHER ==
[2014-10-05 12:21] VITALS: BMI 26.5
[2017-10-29 08:42] LABS: INR 1.59
== END ==
LOC: ZZSPRING 02:42
PROVIDERS: ATTEND Pharmacist Pharmacotherapy
DX: I26.99 Other pulmonary embolism without acute cor pulmonale (principal); I48.91 Unspecified atrial fibrillation
CPT/HCPCS: 36415; 85610

== ENCOUNTER → 2017-11-12 | Outpatient (CLI) | payer MEDICARE, OTHER ==
[2014-10-05 12:21] VITALS: BMI 26.5
[2017-11-12 08:58] LABS: INR 2.24
== END ==
LOC: ZZSPRING 01:47
PROVIDERS: ATTEND Pharmacist Pharmacotherapy
DX: I48.91 Unspecified atrial fibrillation (principal)
CPT/HCPCS: 36415; 85610

== ENCOUNTER → 2017-11-20 | Outpatient (CLI) | payer MEDICARE, OTHER ==
[2014-10-05 12:21] VITALS: BMI 26.5
[~2017-11-20] MED LIST changes: +LEVO88TA43 PO
[2017-11-20 11:06] LABS: LDL CHOLESTEROL 50 mg/dl
== END ==
LOC: LAB 09:30
PROVIDERS: ATTEND Internal Medicine
DX: E03.9 Hypothyroidism, unspecified (principal); I10 Essential (primary) hypertension; E78.00 Pure hypercholesterolemia, unspecified; E11.42 Type 2 diabetes mellitus with diabetic polyneuropathy
CPT/HCPCS: 36415; 82040; 82247; 82310; 82374; 82435; 82465; 82565; 82947; 83036; 83718; 84075; 84132; 84155; 84295; 84443; 84450; 84460; 84478; 84520; 85027

== ENCOUNTER → 2017-12-04 | Outpatient (CLI) | payer MEDICARE, OTHER ==
[2014-10-05 12:21] VITALS: BMI 26.5
[2017-12-04 10:21] LABS: INR 2.62
== END ==
LOC: LAB 09:58
PROVIDERS: ATTEND Internal Medicine
DX: Z51.81 Encounter for therapeutic drug level monitoring (principal); Z79.01 Long term (current) use of anticoagulants; I26.99 Other pulmonary embolism without acute cor pulmonale; I48.91 Unspecified atrial fibrillation
CPT/HCPCS: 36415; 85610

== ENCOUNTER 2017-12-16 18:46 | Emergency (ER) | payer MEDICARE, OTHER ==
[2014-10-05 12:21] VITALS: Wt 74.8 kg
--- NOTE | 2017-12-16 18:55 | ER Report ---
History and Physical Time Seen By MD: 18:48 HPI/ROS CHIEF COMPLAINT: Dyspnea, chest pain, dysuria HISTORY OF PRESENT ILLNESS: 82-year-old female sent over from [facility] for evaluation of chest pain all day long. Patient's been feeling mildly short of breath. She's been having some dysuria for the last few days. Patient also notes a left-sided headache and her head feels somewhat foggy. She's had no rhinitis, cough or sore throat. She denies fever or chills. REVIEW OF SYSTEMS: Respiratory: As above Cardiovascular: As above Gastrointestinal: No vomiting, no abdominal pain. Musculoskeletal: No back pain. Allergies: Coded Allergies: Penicillins (Verified Allergy, Severe, hives, 12/16/17) Sulfa (Sulfonamide Antibiotics) (Verified Allergy, Severe, hives, 12/16/17) fluorescein (Verified Allergy, Severe, anaphylaxis, 12/16/17) codeine (Verified Allergy, Intermediate, 12/16/17) erythromycin base (Verified Allergy, Mild, 12/16/17) rofecoxib (Verified Allergy, Unknown, 12/16/17) morphine (Verified Adverse Reaction, Mild, GI upset, 12/16/17) Home Meds Active Scripts Ciprofloxacin Hcl (CIPRO) 500 Mg Tablet, 500 MG PO BID for infection, #14 Prov:ELIZABETH OLIVO DO 12/16/17 Levothyroxine Sodium (SYNTHROID) 88 Mcg Tablet, 1 TAB PO QDAY, #45 TAB 0 Refills Prov:JULIO REYEZ MD 11/21/17 Lancets (SAFETY LANCETS) 1 Each Each, EACH Q30D, #100 12 Refills Use to test blood sugar twice daily Prov:JULIO REYEZ MD 09/26/17 Paroxetine Hcl (PAROXETINE HCL) 20 Mg Tablet, 0.5-1 TAB PO QDAY, #30 TAB 3 Refills 1/2 tab (10 mg) po q d X 7 days, the 1 tab (20 mg) po q d Prov:JULIO REYEZ MD 08/14/17 Oxybutynin Chloride (OXYBUTYNIN CHLORIDE ER) 5 Mg Tab.er.24, 1 TAB PO QDAY, #90 TAB.SA 1 Refill Prov:JULIO REYEZ MD 1/12/18 Trazodone Hcl (TRAZODONE HCL) 100 Mg Tablet, 1 TAB PO QHS, #90 TAB 1 Refill Prov:MANUEL TAN APRN 07/24/17 Pantoprazole Sodium (PROTONIX) 40 Mg Tablet.dr, 1 CAP PO QDAY, #90 TAB.SR 4 Refills Prov:JULIO REYEZ MD 07/18/17 Warfarin Sodium (WARFARIN SODIUM) 5 Mg Tablet, 5 MG PO QDAY for 30 Days, #102 TAB 2 Refills [place] 5 MG, M 5 MG, Tu 5 MG, W 7.5 MG, Th 5 MG, F 5 MG, Sa 7.5 MG Prov:BUZZ CROSS PHARMD 07/16/17 Folic Acid (FOLIC ACID) 1 Mg Tablet, 1 TAB PO QDAY, #90 TAB 3 Refills Prov:MANUEL TAN APRN-C 05/21/17 Clonidine Hcl (CLONIDINE HCL) 0.1 Mg Tablet, 1 TAB PO QHS, #30 TAB 5 Refills Prov:JULIO REYEZ MD 05/07/17 Ferrous Sulfate (FERROUS SULFATE) 325 Mg Tablet, 1 TAB PO BID, #180 TAB 3 Refills Prov:JULIO REYEZ MD 03/27/17 Polyethylene Glycol 3350 (MIRALAX) 17 Gm Powd.pack, 17 GM PO QDAY Y for CONSTIPATION, #30 PKT 3 Refills Prov:JULIO REYEZ MD 02/22/17 Valsartan (Valsartan) 320 Mg Tablet, 1 TAB PO DAILY, #90 TAB 4 Refills Prov:JULIO REYEZ MD 01/23/17 Pen Needle, Diabetic (Insulin Pen Needle) 31 Gauge X 1/6" Dis.needle, EA MC Q30D , #100 12 Refills USE TO ADMINISTER INSULIN DAILY Prov:JULIO REYEZ MD 01/16/17 Insulin Glargine 100 Un/Ml Pen (LANTUS SOLOSTAR PEN) 100 Unit/1 Ml Insuln.pen, 20 UNIT SQ DAILY, #1 BOX 12 Refills Prov:JULIO REYEZ MD 10/31/16 Blood Sugar Diagnostic (FREESTYLE LITE STRIPS) 1 Each Strip, 2 EACH MC Q30D, # 100 STRIP 11 Refills Use to test blood sugars twice daily Prov:JULIO REYEZ MD 09/19/16 Albuterol Sulfate (ALBUTEROL SULFATE) 2.5 Mg/0.5 Ml Vial.neb, 2.5 MG IH Q1H Y for WHEEZING, #90 INHALER 4 Refills Prov:MANUEL TAN APRN QUARRYING SPECIALIST-C 06/19/16 Aspirin (ASPIRIN) 325 Mg Tablet, 1 TAB PO Q4-6H Y for PAIN, #30 TAB 4 Refills to use for chest pain PRN Prov:MANUEL TAN APRN-C 06/15/16 Polyvinyl Alcohol/Povidone (ARTIFICIAL TEARS DROPS) 15 Ml Drops, 1 DROP OP PRN, #1 BOTTLE 4 Refills 1 drop into each eye as needed for dry or irritated eyes Prov:MANUEL TAN APRN-C 06/15/16 Calcium Carbonate (TUMS) 300 Mg Tab.chew, 2 TAB PO Q2H Y for GAS/HEARTBURN, #60 TAB.CHEW 5 Refills Prov:MANUEL TAN APRN QUARRYING SPECIALIST-C 06/15/16 Acetaminophen (ACETAMINOPHEN) 500 Mg Tablet, 1 TAB PO Q4-6H Y for PAIN, #30 TAB 4 Refills Prov:MANUEL TAN APRNP-C 06/15/16 Vitamin B Complex (VITAMIN B COMPLEX) 1 Each Capsule, 1 TAB PO DAILY, #30 CAPSULE 11 Refills daily in the afternoon Prov:MANUEL TAN APRNP-C 06/15/16 Cyanocobalamin (Vitamin B-12) (VITAMIN B-12) 500 Mcg Tablet, 1 TAB PO DAILY, # 90 TAB 3 Refills Prov:MANUEL TAN APRN QUARRYING SPECIALIST-C 06/15/16 Lactobacillus Acidophilus (ACIDOPHILUS LACTOBACILLUS) 1 Each Capsule, 1 TAB PO QDAY, #90 CAPSULE 3 Refills Prov:MANUEL TAN APRN QUARRYING SPECIALIST-C 06/15/16 Hydrocortisone Acetate (HYDROCORTISONE ACETATE) 25 Mg Supp.rect, 1 SUPP.RECT RC BID, #60 SUPP.RECT Prov:MANUEL TAN APRN QUARRYING SPECIALIST-C 06/15/16 Carvedilol (CARVEDILOL) 12.5 Mg Tablet, 1 TAB PO BID, #180 TAB 2 Refills Prov:MANUEL TAN APRNP-C 06/15/16 Cholecalciferol (Vitamin D3) (VITAMIN D3) 1,000 Unit Capsule, 1000 UNIT PO BID, #60 CAPSULE 11 Refills Prov:MANUEL TAN APRN QUARRYING SPECIALIST-C 06/15/16 Nitroglycerin (NITROSTAT) 0.4 Mg Subl, 0.4 MG SL Q5MIN, #15 TAB 0 Refills Prov:LESLIE BILL MD 08/04/15 Reported Medications Magnesium Hydroxide (MILK OF MAGNESIA) 400 Mg/5 Ml Oral.susp, 5 ML PO PRN, BOTTLE 05/18/17 Mag Hydrox/Al Hydrox/Simeth (LA ACID SUSPENSION) 355 Ml Oral.susp, 5 ML PO BID Y for DYSPEPSIA 05/18/17 Loperamide HCl (Imodium A-D) 2 Mg Capsule, 1 CAP PO after each loose 05/18/17 Acetaminophen (Acetaminophen) 325 Mg Capsule, 1-2 TAB PO Q4-6H 05/18/17 Amlodipine Besylate (AMLODIPINE BESYLATE) 5 Mg Tablet, 1 TAB PO QDAY, TAB 05/07/17 Atorvastatin Calcium (ATORVASTATIN CALCIUM) 10 Mg Tablet, 1 TAB PO QDAY, TAB 05/07/17 Vit A/Vit C/Vit E/Zinc/Copper (PRESERVISION AREDS TABLET) 1 Each Tablet, 1 TAB PO BID, TAB 06/26/16 Oxygen (Oxygen) 2 L Inha, 2 L INH cont 10/22/12 Past Medical/Surgical History Past Medical History Neurologic: Reports hx of: dementia neuropathy (diabetic neuropathy) stroke transient ischemic attack (1995) HEENT: Reports hx of: retinopathy (diabetic) other ENT disorders (Retinal Hemorrhage) Cardiovascular: Reports hx of: atrial fibrillation (hx of) hyperlipidemia hypertension other CV history (bleeding disorder) Respiratory: Reports hx of: asthma chronic bronchitis pulmonary embolism (post-op hysterectomy) Gastrointestinal: Reports hx of: other GI history (Partial intestinal obstruction ) Psychiatric: Reports hx of: depression Endocrine: Reports hx of: diabetes type 2 (1981) hypothyroidism Hematology/oncology: Reprots hx of: skin cancer (Face, head, arm) Past Surgical History HEENT: Reports hx of: cataract extraction sinus surgery tonsillectomy (and adenoids 1938) other nasal surgery (Bilateral partial turbinectomy w/nasal antrostomies and septoplasty) other throat surgery (Tonsil Tags removed 1948) Cardiovascular: Reports hx of: CABG surgery coronary stent pacemaker Respiratory: Reports hx of: other chest surgery (Multiple THracentesis) Gastrointestinal: Reports hx of: appendectomy (1970) cholecystectomy (1970) Gynecologic: Reports hx of: cystoscopy (Bladder and urethral dilation and removal of polyps. 1996) hysterectomy (with cystocele repair) other surgery Breast: Reports hx of: breast biopsy Musculoskeletal: Reports hx of: carpal tunnel release spinal surgery (Lumbar Spin discogram 2004 and bilateral nerve root decomprssion, iliac grafting with anterior cervical fusion and cervical plate 1993. Cervical spine in traction at 38 yo) total joint replacement (L TKA 2011, R shoulder 09/13 post fx) Integumentary: Reports hx of: skin cancer removal (Face, hands) other integumentary surg (excision of leg lesions 1964) Endocrine: Reports hx of: thyroid surgery (R thyroid lobectomy and L thyroidectomy 2005) Reviewed Nurses Notes: Yes Old Medical Records Reviewed: Yes Hx Smoking: Yes Smoking Status: Former Smoker Exposure to Second Hand Smoke?: No Hx Substance Use Disorder: No Hx Alcohol Use: No Constitutional Vital Sign - Last 24 Hours 12/16/17 12/16/17 12/16/17 12/16/17 18:46 18:49 18:50 18:58 Temp 97.9 Pulse ??? 62 Resp 24 B/P (MAP) 192/75 192/75 (114) Pulse Ox 95 O2 Delivery Nasal Cannula O2 Flow Rate 2.0 12/16/17 12/16/17 12/16/17 12/16/17 19:00 19:01 19:16 19:30 Pulse 60 ??? Resp 14 B/P (MAP) 150/96 (114) 140/69 (92) 12/16/17 12/16/17 12/16/17 12/16/17 19:31 19:46 20:00 20:01 Pulse 60 60 60 Resp 19 12 15 B/P (MAP) 144/65 (91) Pulse Ox 96 94 96 12/16/17 20:16 Pulse ??? Physical Exam General Appearance: The patient is alert, has no immediate need for airway protection and no current signs of toxicity.. Vital signs stable, afebrile, pulse ox normal HEENT: Pupils equal and round no injection. Oropharynx no redness or exudate, mucous members are moist Respiratory: Chest is non tender, lungs are clear to auscultation. Cardiac: regular rate and rhythm Gastrointestinal: Abdomen is soft and non tender, no masses, bowel sounds normal. Musculoskeletal: Neck: Neck is supple and non tender. No lymphadenopathy Extremities have full range of motion and are non tender. Skin: No rashes or lesions. DIFFERENTIAL DIAGNOSIS: After history and physical exam differential diagnosis was considered for chest pain including but not limited to myocardial ischemia, pericarditis pulmonary embolus, chest wall pain, pleural inflammation and pulmonary infectious causes. Additionally,shortness of breath including but not limited to pulmonary infectious process, COPD, asthma, pulmonary embolus and congestive heart failure. Medical Decision Making Data Points Result Diagram: 12/16/17190412/16/171904 Laboratory Hematology Test 12/16/17 19:05 Red Blood Count 4.62 M/uL (4.17-5.56) Mean Corpuscular Volume 84.4 fL (80.0-96.0) Mean Corpuscular Hemoglobin 29.1 pg (26.0-33.0) Mean Corpuscular Hemoglobin Concent 34.4 g/dL (32.0-36.0) Red Cell Distribution Width 13.6 % (11.5-14.5) Mean Platelet Volume 8.6 fL (7.2-11.1) Neutrophils (%) (Auto) 73.2 % (39.4-72.5) Lymphocytes (%) (Auto) 12.8 % (17.6-49.6) Monocytes (%) (Auto) 10.4 % (4.1-12.4) Eosinophils (%) (Auto) 1.9 % (0.4-6.7) Basophils (%) (Auto) 1.7 % (0.3-1.4) Nucleated RBC Relative Count (auto) 0.1 /100WBC Neutrophils # (Auto) 3.6 K/uL (2.0-7.4) Lymphocytes # (Auto) 0.6 K/uL (1.3-3.6) Monocytes # (Auto) 0.5 K/uL (0.3-1.0) Eosinophils # (Auto) 0.1 K/uL (0.0-0.5) Basophils # (Auto) 0.1 K/uL (0.0-0.1) Nucleated RBC Absolute Count (auto) 0.00 K/uL D-Dimer Quantitative (PE/DVT) 0.33 ug/ml (0-0.50) Urine Color Straw Urine Clarity Slightly-cloudy Urine pH 6.0 pH (4.8-9.5) Urine Specific [place] 1.013 Urine Protein Negative mg/dL (NEGATIVE) Urine Glucose (UA) Negative mg/dL (NEGATIVE) Urine Ketones Negative mg/dL (NEGATIVE) Urine Blood Negative (NEGATIVE) Urine Nitrite Negative (NEGATIVE) Urine Bilirubin Negative (NEGATIVE) Urine Urobilinogen Negative mg/dL (0.2-1.9) Urine Leukocyte Esterase Large (NEGATIVE) Urine RBC 1 /HPF (0-2/HPF) Urine WBC 113 /HPF (0-5/HPF) Urine Squamous Epithelial Cells Many /LPF (</=FEW) Urine Transitional Epithelial Cells Moderate /LPF (NONE-FEW) Urine Bacteria Few /HPF (NONE-FEW) Urine Hyaline Casts Few /LPF (NONE-FEW) Urine Mucus None /HPF (NONE-FEW) Sodium Level 142 mmol/L (137-145) Potassium Level 3.5 mmol/L (3.5-5.0) Chloride Level 101 mmol/L (98-107) Carbon Dioxide Level 27 mmol/L (22-31) Blood Urea Nitrogen 15 mg/dl (7-18) Creatinine 0.80 mg/dl (0.52-1.04) Glomerular Filtration Rate Calc > 60.0 Random Glucose 178 mg/dl (75-110) Calcium Level 8.6 mg/dl (8.4-10.2) Total Bilirubin 0.6 mg/dl (0.2-1.3) Aspartate Amino Transf (AST/SGOT) 33 U/L (0-35) Alanine Aminotransferase (ALT/SGPT) 27 U/L (0-56) Alkaline Phosphatase 68 U/L (0-126) Troponin I < 0.012 ng/ml B-Type Natriuretic Peptide 120 pg/ml (0-100) Total Protein 6.8 gm/dl (6.3-8.2) Albumin 4.1 g/dl (3.5-5.0) Chemistry Test 12/16/17 19:05 White Blood Count 4.9 k/uL (4.5-11.0) Red Blood Count 4.62 M/uL (4.17-5.56) Hemoglobin 13.4 g/dL (12.0-16.0) Hematocrit 39.0 % (34.0-47.0) Mean Corpuscular Volume 84.4 fL (80.0-96.0) Mean Corpuscular Hemoglobin 29.1 pg (26.0-33.0) Mean Corpuscular Hemoglobin Concent 34.4 g/dL (32.0-36.0) Red Cell Distribution Width 13.6 % (11.5-14.5) Platelet Count 178 K/uL (150-450) Mean Platelet Volume 8.6 fL (7.2-11.1) Neutrophils (%) (Auto) 73.2 % (39.4-72.5) Lymphocytes (%) (Auto) 12.8 % (17.6-49.6) Monocytes (%) (Auto) 10.4 % (4.1-12.4) Eosinophils (%) (Auto) 1.9 % (0.4-6.7) Basophils (%) (Auto) 1.7 % (0.3-1.4) Nucleated RBC Relative Count (auto) 0.1 /100WBC Neutrophils # (Auto) 3.6 K/uL (2.0-7.4) Lymphocytes # (Auto) 0.6 K/uL (1.3-3.6) Monocytes # (Auto) 0.5 K/uL (0.3-1.0) Eosinophils # (Auto) 0.1 K/uL (0.0-0.5) Basophils # (Auto) 0.1 K/uL (0.0-0.1) Nucleated RBC Absolute Count (auto) 0.00 K/uL D-Dimer Quantitative (PE/DVT) 0.33 ug/ml (0-0.50) Urine Color Straw Urine Clarity Slightly-cloudy Urine pH 6.0 pH (4.8-9.5) Urine Specific [place] 1.013 Urine Protein Negative mg/dL (NEGATIVE) Urine Glucose (UA) Negative mg/dL (NEGATIVE) Urine Ketones Negative mg/dL (NEGATIVE) Urine Blood Negative (NEGATIVE) Urine Nitrite Negative (NEGATIVE) Urine Bilirubin Negative (NEGATIVE) Urine Urobilinogen Negative mg/dL (0.2-1.9) Urine Leukocyte Esterase Large (NEGATIVE) Urine RBC 1 /HPF (0-2/HPF) Urine WBC 113 /HPF (0-5/HPF) Urine Squamous Epithelial Cells Many /LPF (</=FEW) Urine Transitional Epithelial Cells Moderate /LPF (NONE-FEW) Urine Bacteria Few /HPF (NONE-FEW) Urine Hyaline Casts Few /LPF (NONE-FEW) Urine Mucus None /HPF (NONE-FEW) Glomerular Filtration Rate Calc > 60.0 Calcium Level 8.6 mg/dl (8.4-10.2) Total Bilirubin 0.6 mg/dl (0.2-1.3) Aspartate Amino Transf (AST/SGOT) 33 U/L (0-35) Alanine Aminotransferase (ALT/SGPT) 27 U/L (0-56) Alkaline Phosphatase 68 U/L (0-126) Troponin I < 0.012 ng/ml B-Type Natriuretic Peptide 120 pg/ml (0-100) Total Protein 6.8 gm/dl (6.3-8.2) Albumin 4.1 g/dl (3.5-5.0) Coagulation Test 12/16/17 19:05 D-Dimer Quantitative (PE/DVT) 0.33 ug/ml Urinalysis Test 12/16/17 19:05 Urine Color Straw Urine Clarity Slightly-cloudy Urine pH 6.0 pH (4.8-9.5) Urine Specific [place] 1.013 Urine Protein Negative mg/dL (NEGATIVE) Urine Glucose (UA) Negative mg/dL (NEGATIVE) Urine Ketones Negative mg/dL (NEGATIVE) Urine Blood Negative (NEGATIVE) Urine Nitrite Negative (NEGATIVE) Urine Bilirubin Negative (NEGATIVE) Urine Urobilinogen Negative mg/dL (0.2-1.9) Urine Leukocyte Esterase Large (NEGATIVE) Urine RBC 1 /HPF (0-2/HPF) Urine WBC 113 /HPF (0-5/HPF) Urine Squamous Epithelial Cells Many /LPF (</=FEW) Urine Transitional Epithelial Cells Moderate /LPF (NONE-FEW) Urine Bacteria Few /HPF (NONE-FEW) Urine Hyaline Casts Few /LPF (NONE-FEW) Urine Mucus None /HPF (NONE-FEW) EKG/Imaging EKG Interpretation 12 lead EK Rhythm: normal sinus rhythm, rate 60 bpm, with AV disassociation and junctional rhythm [place]: normal QRS: normal ST segments:, Comparison to previous EKG dated 07/30/17 and 08/12/17, no significant morphologic change, diffuse nonspecific ST and T-wave changes Imaging X-ray: 2 view chest x-ray was obtained. I viewed the images myself on the PACS system. My interpretation of the images is: 1. [place] are clear, there is a pacemaker which is intact. There is no effusion, mediastinum is normal. There is hardware in the neck region from a neck fusion. Comparison to previous chest x-ray dated 07/30/17, no significant change.. The radiologist interpretation had no clinically significant variation from this interpretation. Results: CT scan of the head was obtained. The results of the study are no acute findings. The study was read by the radiologist. I viewed the images myself on the PACS system. ED Course/Re-evaluation Clinical Indication for ER IV: IV Access ED Course Patient was minute to an examination room. H&P was done. The differential diagnoses was considered. On clinical examination. Patient has a nonfocal neurologic examination. He is complaining of headache, shortness of breath, chest pain. She's had no nausea or vomiting. Diagnostic evaluation is undertaken. Her laboratory studies show no significant findings. Her troponin is negative. Her EKG shows no evidence of ischemia or ischemic changes. It's unchanged from previous EKG. Chest x-ray shows no infiltrate and is unchanged from previous chest x-ray. CT scan of the head is unremarkable. Urinalysis returns with signs of infection. A urinary cultures ordered. Patient has allergies to amoxicillin and sulfa. She was placed on Cipro for urinary tract infection. Patient returned to [facility]. Her granddaughters here to transport her. Decision to Disposition Date: December 16, 2017 Decision to Disposition Time: 19:23 Depart Departure Latest Vital Signs Vital Signs Date Time Temp Pulse Resp B/P (MAP) Pulse Ox O2 Delivery O2 Flow Rate FiO2 12/16/17 20:16 ??? 12/16/17 20:01 15 96 12/16/17 20:00 144/65 (91) 12/16/17 18:58 2.0 12/16/17 18:49 97.9 Nasal Cannula Impression: Primary Impression: Urinary tract infection Additional Impressions: Weakness Chest pain Dyspnea Condition: Improved Disposition: HOME OR SELF-CARE Referrals: JULIO REYEZ MD (PCP) New Scripts Ciprofloxacin Hcl (CIPRO) 500 Mg Tablet 500 MG PO BID for infection, #14 Prov: ELIZABETH OLIVO DO 12/16/17 Patient Instructions: Urinary Tract Infection in Women (ED) Additional Instructions: Follow-up with your primary care if unimproved in 2-3 days, your physician may be able to check the culture results and adjust antibiotic therapy if necessary Increase your fluid intake Problem Qualifiers Primary Impression: Urinary tract infection Urinary tract infection type: acute cystitis Hematuria presence: without hematuria Qualified Codes: N30.00 - Acute cystitis without hematuria Additional Impressions: Chest pain Chest pain type: unspecified Qualified Codes: R07.9 - Chest pain, unspecified Dyspnea Dyspnea type: unspecified Qualified Codes: R06.00 - Dyspnea, unspecified ELIZABETH OLIVO DO December 16, 2017 18:55
[2017-12-16] MEDS ORDERED: ASPIRIN 81 MG CHEW PO ONE (19:00)
--- NOTE | 2017-12-16 19:07 | EKG ---
FACILITY: [facility] PATIENT NAME: LACI QUIROZ : [id number] MR: [id number] V: [id number] EXAM DATE: ORDERING PHYSICIAN: ELIZABETH OLIVO TECHNOLOGIST: VAISHALI Curry Reason : CARDIAC Blood Pressure : / mmHG Vent. Rate : 060 BPM Atrial Rate : 060 BPM P-R Int : 000 ms QRS Dur : 084 ms QT Int : 438 ms P-R-T Axes : 090 004 055 degrees QTc Int : 438 ms Atrial pacemaker with rate of 60bpm Artifact in several leads - repeat if needed Confirmed by SHANNA PETIT ([id number]) on 12/17/2017 5:31:19 AM Referred By: Confirmed By:SHANNA PETIT
[2017-12-16 19:20] LABS: PLATELET COUNT, AUTOMATED 178 K/uL (150-450)
--- NOTE | 2017-12-16 19:47 | RADIOLOGY IMAGING REPORT ---
FACILITY: [facility] [place] PATIENT NAME: Reina Ocasio : 1935 MR: [id number] V: [id number] EXAM DATE: ORDERING PHYSICIAN: ELIZABETH OLIVO TECHNOLOGIST: Location: [facility] Patient: Reina Ocasio : 1935 Visit/Account:[id number] Date of Sevice: 12/16/2017 Chest 2 views: HISTORY: Chest pain, headache, foggy mentation COMPARISON: 07/30/2017 FINDINGS: Frontal and lateral chest: Heart size is upper limits of normal. Cardiac stents are noted. Mediastinal contours are within normal limits. Aorta is ectatic and there are atherosclerotic changes . There is no focal consolidation, pleural effusion or pneumothorax. Pulmonary vasculature is normal. There is peribronchial thickening which appears to be chronic. Transvenous pacer leads are unchanged. Changes of median sternotomy noted. Post surgical changes are present in the cervical spine. Patient status post right shoulder replacement. Degenerative changes are present in the thoracic spine. IMPRESSION: 1. Borderline cardiomegaly, stable. There is no evidence of congestive heart failure. 2. Chronic peribronchial thickening without evidence of focal infiltrate. Report Dictated By: Ayah Palmer MD at 12/16/2017 7:41 PM Report E-Signed By: Ayah Palmer MD at 12/16/2017 7:43 PM WSN:[id number]
--- NOTE | 2017-12-16 19:49 | RADIOLOGY IMAGING REPORT ---
FACILITY: [facility] PATIENT NAME: Reina Ocasio : 1935 MR: [id number] V: [id number] EXAM DATE: ORDERING PHYSICIAN: ELIZABETH OLIVO TECHNOLOGIST: Location: [facility] [place] Patient: Reina Ocasio : 1935 Visit/Account:[id number] Date of Sevice: 12/16/2017 EXAMINATION: CT Head without intravenous contrast HISTORY: Headache. Altered mentation. TECHNIQUE: Axial images were obtained from the skull base to the vertex without intravenous contrast . Sagittal and coronal reformatted images are also submitted. One of the following dose optimization techniques was utilized in the performance of this exam: Autom ated exposure control; adjustment of the mA and/or kV according to the patient's size; or use of an i terative reconstruction technique. Specific details can be referenced in the facility's radiology C T exam operational policy. COMPARISON: CT head without contrast dated 04/30/2017. FINDINGS: Brain volume: Mild generalized volume loss. Ventricles: No hydrocephalus. Acute ischemic changes: None. Hemorrhage: None. Masses / edema: None. Alfaro-white: Negative. White matter: Stable moderate chronic microvascular ischemic changes. Vessels: Carotid siphon and vertebral artery calcification. Normal density in the dural venous sinus es. Extra-axial: Negative. Calvarium / skull base: Negative. Visualized sinuses / orbits: Negative. IMPRESSION: No acute intracranial abnormality. Report Dictated By: Polo Pappas MD at 12/16/2017 7:43 PM Report E-Signed By: Polo Pappas MD at 12/16/2017 7:46 PM WSN:[id number]
[2017-12-16 20:00] VITALS: BP 144/65
[2017-12-16] MEDS ORDERED: CIPR-344 PO (20:04)
[2017-12-16] MEDS ORDERED: CIPROFLOXACIN 500 MG TAB PO ONE (20:05)
== END 2017-12-16 20:17 | disposition home or self-care (01) ==
LOC: ER 19:13
DX: N30.00 Acute cystitis without hematuria (principal); R06.00 Dyspnea, unspecified; R07.89 Other chest pain; R53.1 Weakness; R51 Headache
CPT/HCPCS: 70450; 71046; 81001; 83880; 84484; 85025; 85379; 87088; 93005; 99283; A9270; 82040; 82247; 82310; 82374; 82435; 82565; 82947; 84075; 84132; 84155; 84295; 84450; 84460; 84520

== ENCOUNTER → 2017-12-31 | Outpatient (CLI) | payer MEDICARE, OTHER ==
[2014-10-05 12:21] VITALS: BMI 26.5
[~2017-12-31] MED LIST changes: +CIPR-344 PO
== END ==
LOC: ZZSPRING 01:29
PROVIDERS: ATTEND Internal Medicine
DX: E03.9 Hypothyroidism, unspecified (principal); E11.9 Type 2 diabetes mellitus without complications; I10 Essential (primary) hypertension; F03.90 Unspecified dementia, unspecified severity, without behavioral disturbance, psychotic disturbance, mood disturbance, and anxiety
CPT/HCPCS: 36415; 84443

== ENCOUNTER → 2018-01-28 | Outpatient (CLI) | payer MEDICARE, OTHER ==
[2014-10-05 12:21] VITALS: BMI 26.5
[2018-01-28 08:47] LABS: INR 2.67
== END ==
LOC: ZZSPRING 01:37
PROVIDERS: ATTEND Pharmacist Pharmacotherapy
DX: I26.99 Other pulmonary embolism without acute cor pulmonale (principal); I48.91 Unspecified atrial fibrillation
CPT/HCPCS: 36415; 85610

== ENCOUNTER → 2018-02-11 | Outpatient (CLI) | payer MEDICARE, OTHER ==
[2014-10-05 12:21] VITALS: BMI 26.5
[~2018-02-11] MED LIST changes: -TRAZ-163 PO; +TRAZ100T31 PO; -VALS320T4 PEG; -VALS320T4 PO; +VALS320T5 PEG; +VALS320T5 PO
== END ==
LOC: ZZSPRING 00:21
PROVIDERS: ATTEND Internal Medicine
DX: E03.9 Hypothyroidism, unspecified (principal)
CPT/HCPCS: 36415; 84443

== ENCOUNTER → 2018-03-04 | Outpatient (CLI) | payer MEDICARE, OTHER ==
[2014-10-05 12:21] VITALS: BMI 26.5
[~2018-03-04] MED LIST changes: +LOSA100T67 PO
[2018-03-04 08:23] LABS: INR 2.41
== END ==
LOC: LAB 01:03
PROVIDERS: ATTEND Pharmacist Pharmacotherapy
DX: I26.99 Other pulmonary embolism without acute cor pulmonale (principal); I48.91 Unspecified atrial fibrillation
CPT/HCPCS: 36415; 85610

== ENCOUNTER → 2018-03-11 | Outpatient (CLI) | payer MEDICARE, OTHER ==
[2014-10-05 12:21] VITALS: BMI 26.5
[2018-03-11 08:54] LABS: LDL CHOLESTEROL 72 mg/dl
== END ==
LOC: ZZSPRING 00:55
PROVIDERS: ATTEND Internal Medicine
DX: E78.00 Pure hypercholesterolemia, unspecified (principal); I10 Essential (primary) hypertension; E11.42 Type 2 diabetes mellitus with diabetic polyneuropathy
CPT/HCPCS: 36415; 82040; 82247; 82310; 82374; 82435; 82465; 82565; 82947; 83036; 83718; 84075; 84132; 84155; 84295; 84450; 84460; 84478; 84520

== ENCOUNTER → 2018-04-01 | Outpatient (CLI) | payer MEDICARE, OTHER ==
[2014-10-05 12:21] VITALS: BMI 26.5
[2018-04-02 08:10] LABS: INR 2.09
== END ==
LOC: ZZSPRING 01:04
PROVIDERS: ATTEND Pharmacist Pharmacotherapy
DX: I48.91 Unspecified atrial fibrillation (principal)
CPT/HCPCS: 36415; 85610

== ENCOUNTER → 2018-04-29 | Outpatient (CLI) | payer MEDICARE, OTHER ==
[2014-10-05 12:21] VITALS: BMI 26.5
[~2018-04-29] MED LIST changes: +AMLO-111 PO; -AMLO-96 PO; -LOSA100T67 PO; +LOSA100T69 PO
[2018-04-29 08:27] LABS: INR 2.51
== END ==
LOC: ZZSPRING 00:57
PROVIDERS: ATTEND Pharmacist Pharmacotherapy
DX: I48.91 Unspecified atrial fibrillation (principal)
CPT/HCPCS: 36415; 85610

== ENCOUNTER → 2018-05-27 | Outpatient (CLI) | payer MEDICARE, OTHER ==
[2014-10-05 12:21] VITALS: BMI 26.5
[2018-05-27 08:21] LABS: INR 1.94
== END ==
LOC: ZZSPRING 02:44
PROVIDERS: ATTEND Pharmacist Pharmacotherapy
DX: I48.91 Unspecified atrial fibrillation (principal)
CPT/HCPCS: 36415; 85610

== ENCOUNTER → 2018-06-10 | Outpatient (CLI) | payer MEDICARE, OTHER ==
[2014-10-05 12:21] VITALS: BMI 26.5
[2018-06-10 08:13] LABS: LDL CHOLESTEROL 60 mg/dl
== END ==
LOC: ZZSPRING 01:38
PROVIDERS: ATTEND Internal Medicine
DX: E11.42 Type 2 diabetes mellitus with diabetic polyneuropathy (principal); I10 Essential (primary) hypertension; E78.00 Pure hypercholesterolemia, unspecified
CPT/HCPCS: 36415; 82040; 82247; 82310; 82374; 82435; 82465; 82565; 82947; 83036; 83718; 84075; 84132; 84155; 84295; 84450; 84460; 84478; 84520

== ENCOUNTER → 2018-06-24 | Outpatient (CLI) | payer MEDICARE, OTHER ==
[2014-10-05 12:21] VITALS: BMI 26.5
[2018-06-24 08:20] LABS: INR 2.51
== END ==
LOC: ZZSPRING 01:09
PROVIDERS: ATTEND Pharmacist Pharmacotherapy
DX: Z51.81 Encounter for therapeutic drug level monitoring (principal); Z79.01 Long term (current) use of anticoagulants; I26.99 Other pulmonary embolism without acute cor pulmonale; I48.91 Unspecified atrial fibrillation
CPT/HCPCS: 36415; 85610

== ENCOUNTER 2018-07-28 07:56 | Emergency (ER) | payer MEDICARE, OTHER ==
[2014-10-05 12:21] VITALS: Wt 75.3 kg
[~2018-07-28 07:56] MED LIST changes: +AMLO-111 PO; -AMLO-125 PO; -SODI22SP NS
--- NOTE | 2018-07-28 08:03 | ER Report ---
History and Physical Time Seen By MD: 08:03 HPI/ROS 82-year-old female asked staff at [facility] to come to the ED for SOB. During my interview she could not remember why she asked to come, but said she had chest pain. SHe couldn't remember how long she has had pain. No abdominal pain. No fever/chills. She denied SOB Remainder of the 14 system rev: Yes Allergies: Coded Allergies: Penicillins (Verified Allergy, Severe, hives, 07/28/18) Sulfa (Sulfonamide Antibiotics) (Verified Allergy, Severe, hives, 07/28/18) fluorescein (Verified Allergy, Severe, anaphylaxis, 07/28/18) codeine (Verified Allergy, Intermediate, 07/28/18) erythromycin base (Verified Allergy, Mild, 07/28/18) rofecoxib (Verified Allergy, Unknown, 07/28/18) morphine (Verified Adverse Reaction, Mild, GI upset, 07/28/18) Home Meds Active Scripts Trazodone Hcl (TRAZODONE HCL) 100 Mg Tablet, 1 TAB PO QHS, #90 TAB 0 Refills Prov:JULIO REYEZ MD 07/23/18 Paroxetine Hcl (PAROXETINE HCL) 20 Mg Tablet, 1 TAB PO QDAY, #30 TAB 5 Refills Prov:MANUEL TAN APRN-C 06/06/18 Folic Acid (FOLIC ACID) 1 Mg Tablet, 1 TAB PO QDAY, #90 TAB 1 Refill Prov:MANUEL TAN APRN-C 06/06/18 Warfarin Sodium (WARFARIN SODIUM) 5 Mg Tablet, 5 MG PO QDAY for 30 Days, #102 TAB 5 Refills [place] 5 MG, M 5 MG, Tu 5 MG, W 7.5 MG, Th 5 MG, F 5 MG, Sa 7.5 MG Prov:JULIO REYEZ MD 03/05/18 Oxybutynin Chloride (OXYBUTYNIN CHLORIDE ER) 5 Mg Tab.er.24, 1 TAB PO QDAY, #90 TAB.SA 3 Refills Prov:JULIO REYEZ MD 03/05/18 Ferrous Sulfate (FERROUS SULFATE) 325 Mg Tablet, 1 TAB PO BID, #180 TAB 3 Refills Prov:JULIO REYEZ MD 03/05/18 Losartan Potassium (LOSARTAN POTASSIUM) 100 Mg Tablet, 1 TAB PO QDAY, #90 TAB 3 Refills Prov:JULIO REYEZ MD 02/27/18 Levothyroxine Sodium (SYNTHROID) 88 Mcg Tablet, 1 TAB PO DAILY, #90 TAB 3 Refil ls 1 tab po daily 6X per week, and omit one day. Prov:JULIO REYEZ MD 01/01/18 Insulin Glargine 100 Un/Ml Pen (LANTUS SOLOSTAR PEN) 100 Unit/1 Ml Insuln.pen, 16 UNIT SQ QDAY, #1 BOX 12 Refills Prov:JULIO REYEZ MD 12/25/17 Lancets (SAFETY LANCETS) 1 Each Each, EACH MC Q30D, #100 12 Refills Use to test blood sugar twice daily Prov:JULIO REYEZ MD 09/26/17 Pantoprazole Sodium (PROTONIX) 40 Mg Tablet.dr, 1 CAP PO QDAY, #90 TAB.SR 4 R efills Prov:JULIO REYEZ MD 07/18/17 Polyethylene Glycol 3350 (MIRALAX) 17 Gm Powd.pack, 17 GM PO QDAY PRN for CONSTIPATION, #30 PKT 3 Refills Prov:JULIO REYEZ MD 02/22/17 Pen Needle, Diabetic (Insulin Pen Needle) 31 Gauge X 1/6" Dis.needle, EA MC Q30D, #100 12 Refills USE TO ADMINISTER INSULIN DAILY Prov:JULIO REYEZ MD 01/16/17 Blood Sugar Diagnostic (FREESTYLE LITE STRIPS) 1 Each Strip, 2 EACH MC Q30D, #100 STRIP 11 Refills Use to test blood sugars twice daily Prov:JULIO REYEZ MD 09/19/16 Albuterol Sulfate (ALBUTEROL SULFATE) 2.5 Mg/0.5 Ml Vial.neb, 2.5 MG IH Q1H PRN for WHEEZING, #90 INHALER 4 Refills Prov:MANUEL TAN APRN-Michael 06/19/16 Aspirin (ASPIRIN) 325 Mg Tablet, 1 TAB PO Q4-6H PRN for PAIN, #30 TAB 4 Refills to use for chest pain PRN Prov:MANUEL TAN APRN-C 06/15/16 Polyvinyl Alcohol/Povidone (ARTIFICIAL TEARS DROPS) 15 Ml Drops, 1 DROP OP PRN, #1 BOTTLE 4 Refills 1 drop into each eye as needed for dry or irritated eyes Prov:MANUEL TAN APRN [employer]-C 06/15/16 Calcium Carbonate (TUMS) 300 Mg Tab.chew, 2 TAB PO Q2H PRN for GAS/HEARTBURN, #60 TAB.CHEW 5 Refills Prov:MANUEL TAN APRN [employer]-C 06/15/16 Acetaminophen (ACETAMINOPHEN) 500 Mg Tablet, 1 TAB PO Q4-6H PRN for PAIN, #30 TAB 4 Refills Prov:MANUEL TAN APRN [employer]-C 06/15/16 Vitamin B Complex (VITAMIN B COMPLEX) 1 Each Capsule, 1 TAB PO DAILY, #30 CAPSULE 11 Refills daily in the afternoon Prov:MANUEL TAN APRN [employer]-C 06/15/16 Cyanocobalamin (Vitamin B-12) (VITAMIN B-12) 500 Mcg Tablet, 1 TAB PO DAILY, #90 TAB 3 Refills Prov:MANUEL TAN APRN [employer]-C 06/15/16 Lactobacillus Acidophilus (ACIDOPHILUS LACTOBACILLUS) 1 Each Capsule, 1 TAB PO QDAY, #90 CAPSULE 3 Refills Prov:MANUEL TAN APRN [employer]-C 06/15/16 Hydrocortisone Acetate (HYDROCORTISONE ACETATE) 25 Mg Supp.rect, 1 SUPP.RECT RC BID, #60 SUPP.RECT Prov:MANUEL TAN APRN [employer]-C 06/15/16 Carvedilol (CARVEDILOL) 12.5 Mg Tablet, 1 TAB PO BID, #180 TAB 2 Refills Prov:MANUEL TAN APRN [employer]-C 06/15/16 Cholecalciferol (Vitamin D3) (VITAMIN D3) 1,000 Unit Capsule, 1000 UNIT PO BID, #60 CAPSULE 11 Refills Prov:MANUEL TAN APRN [employer]-C 06/15/16 Nitroglycerin (NITROSTAT) 0.4 Mg Subl, 0.4 MG SL Q5MIN, #15 TAB 0 Refills Prov:LELSIE BILL MD 08/04/15 Reported Medications Sodium Chloride/Aloe Vera (AYR SALINE NASAL GEL SPRAY) 22 Ml Halsey, 22 ML NS QHS, #1 SPRAY 07/28/18 Magnesium Hydroxide (MILK OF MAGNESIA) 400 Mg/5 Ml Oral.susp, 5 ML PO PRN, BOTTLE 05/18/17 Mag Hydrox/Al Hydrox/Simeth (OH ACID SUSPENSION) 355 Ml Oral.susp, 5 ML PO BID PRN for DYSPEPSIA 05/18/17 Loperamide HCl (Imodium A-D) 2 Mg Capsule, 1 CAP PO after each loose 05/18/17 Acetaminophen (Acetaminophen) 325 Mg Capsule, 1-2 TAB PO Q4-6H 05/18/17 Amlodipine Besylate (AMLODIPINE BESYLATE) 5 Mg Tablet, 1 TAB PO QDAY, TAB 05/07/17 Atorvastatin Calcium (ATORVASTATIN CALCIUM) 10 Mg Tablet, 1 TAB PO QDAY, TAB 05/07/17 Vit A/Vit C/Vit E/Zinc/Copper (PRESERVISION AREDS TABLET) 1 Each Tablet, 1 TAB PO BID, TAB 06/26/16 Oxygen (Oxygen) 2 L Inha, 2 L INH cont 10/22/12 Reviewed Nurses Notes: Yes Old Medical Records Reviewed: Yes Hx Smoking: Yes Smoking Status: Former Smoker Exposure to Second Hand Smoke?: No Hx Substance Use Disorder: No Hx Alcohol Use: No Constitutional Vital Sign - Last 24 Hours 07/28/18 07:56 Temp 98.4 Pulse 61 Resp 16 B/P (MAP) 181/78 Pulse Ox 94 O2 Delivery Nasal Cannula Physical Exam General Appearance: The patient is alert, has no immediate need for airway protection and no signs of toxicity. Eyes: Pupils equal and round no pallor or injection. ENT, Mouth: Mucous membranes are moist. Respiratory: There are no retractions, lungs are clear to auscultation. Cardiovascular: Regular rate and rhythm. Gastrointestinal: Abdomen is soft and non tender, no masses, bowel sounds normal. Skin: Warm and dry, no rashes. Extremities are nontender, nonswollen and have full range of motion. DIFFERENTIAL DIAGNOSIS: After history and physical exam differential diagnosis was considered for chest pain including but not limited to myocardial ischemia, pericarditis pulmonary embolus, chest wall pain, pleural inflammation and pulmonary infectious causes. Medical Decision Making Data Points Result Diagram: 07/28/18 0825 07/28/18 0825 Laboratory Hematology Test 07/28/18 08:25 Red Blood Count 4.54 M/uL (4.17-5.56) Mean Corpuscular Volume 87.7 fL (80.0-96.0) Mean Corpuscular Hemoglobin 29.2 pg (26.0-33.0) Mean Corpuscular Hemoglobin Concent 33.3 g/dL (32.0-36.0) Red Cell Distribution Width 13.8 % (11.5-14.5) Mean Platelet Volume 8.9 fL (7.2-11.1) Neutrophils (%) (Auto) 72.7 % (39.4-72.5) Lymphocytes (%) (Auto) 11.8 % (17.6-49.6) Monocytes (%) (Auto) 10.2 % (4.1-12.4) Eosinophils (%) (Auto) 4.0 % (0.4-6.7) Basophils (%) (Auto) 1.3 % (0.3-1.4) Nucleated RBC Relative Count (auto) 0.0 /100WBC Neutrophils # (Auto) 2.6 K/uL (2.0-7.4) Lymphocytes # (Auto) 0.4 K/uL (1.3-3.6) Monocytes # (Auto) 0.4 K/uL (0.3-1.0) Eosinophils # (Auto) 0.1 K/uL (0.0-0.5) Basophils # (Auto) 0.0 K/uL (0.0-0.1) Nucleated RBC Absolute Count (auto) 0.00 K/uL Sodium Level 141 mmol/L (137-145) Potassium Level 4.0 mmol/L (3.5-5.0) Chloride Level 100 mmol/L (98-107) Carbon Dioxide Level 33 mmol/L (22-31) Blood Urea Nitrogen 13 mg/dl (7-18) Creatinine 0.70 mg/dl (0.52-1.04) Glomerular Filtration Rate Calc > 60.0 Random Glucose 132 mg/dl (75-110) Calcium Level 8.7 mg/dl (8.4-10.2) Total Bilirubin 0.5 mg/dl (0.2-1.3) Aspartate Amino Transf (AST/SGOT) 28 U/L (0-35) Alanine Aminotransferase (ALT/SGPT) 27 U/L (0-56) Alkaline Phosphatase 70 U/L (0-126) Troponin I < 0.012 ng/ml Total Protein 7.3 g/dl (6.3-8.2) Albumin 4.0 g/dl (3.5-5.0) Chemistry Test 07/28/18 08:25 White Blood Count 3.6 k/uL (4.5-11.0) Red Blood Count 4.54 M/uL (4.17-5.56) Hemoglobin 13.3 g/dL (12.0-16.0) Hematocrit 39.8 % (34.0-47.0) Mean Corpuscular Volume 87.7 fL (80.0-96.0) Mean Corpuscular Hemoglobin 29.2 pg (26.0-33.0) Mean Corpuscular Hemoglobin Concent 33.3 g/dL (32.0-36.0) Red Cell Distribution Width 13.8 % (11.5-14.5) Platelet Count 173 K/uL (150-450) Mean Platelet Volume 8.9 fL (7.2-11.1) Neutrophils (%) (Auto) 72.7 % (39.4-72.5) Lymphocytes (%) (Auto) 11.8 % (17.6-49.6) Monocytes (%) (Auto) 10.2 % (4.1-12.4) Eosinophils (%) (Auto) 4.0 % (0.4-6.7) Basophils (%) (Auto) 1.3 % (0.3-1.4) Nucleated RBC Relative Count (auto) 0.0 /100WBC Neutrophils # (Auto) 2.6 K/uL (2.0-7.4) Lymphocytes # (Auto) 0.4 K/uL (1.3-3.6) Monocytes # (Auto) 0.4 K/uL (0.3-1.0) Eosinophils # (Auto) 0.1 K/uL (0.0-0.5) Basophils # (Auto) 0.0 K/uL (0.0-0.1) Nucleated RBC Absolute Count (auto) 0.00 K/uL Glomerular Filtration Rate Calc > 60.0 Calcium Level 8.7 mg/dl (8.4-10.2) Total Bilirubin 0.5 mg/dl (0.2-1.3) Aspartate Amino Transf (AST/SGOT) 28 U/L (0-35) Alanine Aminotransferase (ALT/SGPT) 27 U/L (0-56) Alkaline Phosphatase 70 U/L (0-126) Troponin I < 0.012 ng/ml Total Protein 7.3 g/dl (6.3-8.2) Albumin 4.0 g/dl (3.5-5.0) EKG/Imaging EKG Interpretation 12 lead EKG: Rhythm: electronic pacemaker Whick: normal QRS: normal ST segments: normal ED Course/Re-evaluation ED Course Patient appears well. Says she does not remember why she asked to come to the emergency department. Initially complained of chest pain, so labs, EKG, and troponin ordered. Upon further evaluation, I asked the patient about her chest pain. She responded that she always has chest pain at the site of her pacemaker, and that is the chest pain she was describing this morning. She denies shortness of breath. No abdominal pain or dysuria. I do not think any further evaluation needs to be done at this time, and we will discharge the patient back to [facility] Decision to Disposition Date: Jul 28, 2018 Decision to Disposition Time: 09:34 Depart Departure Latest Vital Signs Vital Signs Date Time Temp Pulse Resp B/P (MAP) Pulse Ox O2 Delivery O2 Flow Rate FiO2 07/28/18 07:56 98.4 61 16 181/78 94 Nasal Cannula Impression: Primary Impression: Chest pain Condition: Improved Disposition: HOME OR SELF-CARE Referrals: JULIO REYEZ MD (PCP) Patient Instructions: Chest Pain (ED) Problem Qualifiers Primary Impression: Chest pain Chest pain type: unspecified Qualified Codes: R07.9 - Chest pain, unspecified ELMER JESUS MD Jul 28, 2018 08:03
[2018-07-28 08:06] VITALS: BP 181/78
[2018-07-28 08:45] LABS: PLATELET COUNT, AUTOMATED 173 K/uL (150-450)
[2018-07-28] MEDS ORDERED: SODI22SP NS (08:55)
--- NOTE | 2018-07-28 09:06 | RADIOLOGY IMAGING REPORT ---
FACILITY: [facility] - [place] PATIENT NAME: Reina Ocasio : 1935 MR: [id number] V: [id number] EXAM DATE: ORDERING PHYSICIAN: ELMER JESUS TECHNOLOGIST: Location: [facility] - [place] Patient: Reina Ocasio : 1935 Visit/Account:[id number] Date of Sevice: 07/28/2018 Single view of the chest Indication: Chest pain.. Comparison: X-ray examination chest December 16, 2017 Findings: Cardiac silhouette is stable with stable postoperative changes and unchanged appearance of the dual-l ead left hemithorax pacer. Lungs are clear without current failure, new infiltrate, consolidation, e ffusion or pneumothorax. No acute bony finding. Stable appearance reverse right TSA. IMPRESSION: 1. No acute cardiopulmonary process. Report Dictated By: Richie Montoya MD at 07/28/2018 9:01 AM Report E-Signed By: Richie Montoya MD at 07/28/2018 9:02 AM WSN:[email or web address]
--- NOTE | 2018-07-30 08:12 | EKG ---
FACILITY: [facility] - [place] PATIENT NAME: LACI QUIROZ : [id number] MR: [id number] V: [id number] EXAM DATE: ORDERING PHYSICIAN: CRISTOBAL JESUS TECHNOLOGIST: CARLOS MANUEL Curry Reason : Blood Pressure : / mmHG Vent. Rate : 060 BPM Atrial Rate : 060 BPM P-R Int : 162 ms QRS Dur : 086 ms QT Int : 424 ms P-R-T Axes : 036 003 043 degrees QTc Int : 424 ms Electronic atrial pacemaker When compared with ECG of 16-DEC-2017 18:56, No significant change was found Confirmed by Mich Hendricks ([id number]) on 07/30/2018 2:05:56 PM Referred By: ANN MARIE Confirmed By:Mich Ryder
== END 2018-07-28 10:09 | disposition home or self-care (01) ==
LOC: ER 08:24
DX: R07.9 Chest pain, unspecified (principal); Z95.0 Presence of cardiac pacemaker
CPT/HCPCS: 36416; 71045; 82040; 82247; 82310; 82374; 82435; 82565; 82947; 82948; 84075; 84132; 84155; 84295; 84450; 84460; 84484; 84520; 85025; 93005; 99284

== ENCOUNTER → 2018-07-28 | Outpatient (CLI) | payer MEDICARE, OTHER ==
[2014-10-05 12:21] VITALS: BMI 26.5
[~2018-07-28] MED LIST changes: -AMLO-111 PO; +AMLO-125 PO; -LOSA100T69 PO; +LOSA100T75 PO; +SODI22SP NS
== END ==
LOC: AMB 07:39
PROVIDERS: ATTEND Nurse Practitioner
DX: R00.0 Tachycardia, unspecified (principal)
CPT/HCPCS: A0425; A0429

== ENCOUNTER → 2018-09-02 | Outpatient (CLI) | payer MEDICARE, OTHER ==
[2014-10-05 12:21] VITALS: BMI 26.5
[~2018-09-02] MED LIST changes: -AMLO-111 PO; +AMLO-125 PO; +CARV25TA77 PO; +LOSA50TA80 PO; +SODI22SP NS
[2018-09-02 09:00] LABS: INR 1.63
== END ==
LOC: ZZSPRING 01:05
PROVIDERS: ATTEND Pharmacist Pharmacotherapy
DX: I48.91 Unspecified atrial fibrillation (principal)
CPT/HCPCS: 36415; 85610

== ENCOUNTER 2018-09-04 08:13 | Emergency (ER) | payer MEDICARE, OTHER ==
[2014-10-05 12:21] VITALS: Wt 71.2 kg
--- NOTE | 2018-09-04 08:17 | ER Report ---
History and Physical Time Seen By MD: 08:16 HPI/ROS CHIEF COMPLAINT: Confusion, disorientation HISTORY OF PRESENT ILLNESS: Patient is an 82-year-old female from [place] here with 2 day history of intermittent episodes of confusion, rapid heart rate with a known history of atrial fibrillation on Coumadin. Patient was found laying on the floor by nursing staff at the facility. Patient does not recall falling. She does admit to being more confused than normal with an increase from her baseline dementia. Blood glucose is 127 this morning. Patient was noted to be confused last night approximately 2300 at which time she came down to the dining all requesting breakfast. Patient did not have a witnessed fall. Patient was noted to have a rapid heart rate intermittently over the past 2 days in the 130s to 140s prompting increase in Carvedilol by her PCP. Patient was seen yesterday by Dr. Edouard. Patient has no obvious signs of trauma. Nursing staff report that there has been a viral illness going through the nursing facility. Patient's family also reports the patient has not been keeping up with her hydration status. REVIEW OF SYSTEMS: Constitutional: No fever, no chills. Eyes: No discharge. ENT: No sore throat. Cardiovascular: No chest pain, no palpitations. Respiratory: No cough, no shortness of breath. Gastrointestinal: No abdominal pain, no vomiting. Genitourinary: No hematuria. Musculoskeletal: No back pain. Skin: No rashes. Neurological: No headache.+ Increased confusion from baseline Allergies: Coded Allergies: Penicillins (Verified Allergy, Severe, hives, 07/28/18) Sulfa (Sulfonamide Antibiotics) (Verified Allergy, Severe, hives, 07/28/18) fluorescein (Verified Allergy, Severe, anaphylaxis, 07/28/18) codeine (Verified Allergy, Intermediate, 07/28/18) erythromycin base (Verified Allergy, Mild, 07/28/18) rofecoxib (Verified Allergy, Unknown, 07/28/18) morphine (Verified Adverse Reaction, Mild, GI upset, 07/28/18) Home Meds Active Scripts Losartan Potassium (LOSARTAN POTASSIUM) 50 Mg Tablet, 1 TAB PO QDAY, #90 TAB 1 Refill Prov:JULIO REYEZ MD 09/03/18 Carvedilol (COREG) 25 Mg Tablet, 1 TAB PO BID, #180 TAB 1 Refill Prov:JULIO REYEZ MD 09/03/18 Trazodone Hcl (TRAZODONE HCL) 100 Mg Tablet, 1 TAB PO QHS, #90 TAB 0 Refills Prov:JULIO REYEZ MD 07/23/18 Paroxetine Hcl (PAROXETINE HCL) 20 Mg Tablet, 1 TAB PO QDAY, #30 TAB 5 Refills Prov:MANUEL TAN APRN-C 06/06/18 Folic Acid (FOLIC ACID) 1 Mg Tablet, 1 TAB PO QDAY, #90 TAB 1 Refill Prov:MANUEL TAN APRN-C 06/06/18 Warfarin Sodium (WARFARIN SODIUM) 5 Mg Tablet, 5 MG PO QDAY for 30 Days, #102 TAB 5 Refills Pineda 5 MG, M 5 MG, Tu 5 MG, W 7.5 MG, Th 5 MG, F 5 MG, Sa 7.5 MG Prov:JULIO REYEZ MD 03/05/18 Oxybutynin Chloride (OXYBUTYNIN CHLORIDE ER) 5 Mg Tab.er.24, 1 TAB PO QDAY, #90 TAB.SA 3 Refills Prov:JULIO REYEZ MD 03/05/18 Ferrous Sulfate (FERROUS SULFATE) 325 Mg Tablet, 1 TAB PO BID, #180 TAB 3 Refills Prov:JULIO REYEZ MD 03/05/18 Levothyroxine Sodium (SYNTHROID) 88 Mcg Tablet, 1 TAB PO DAILY, #90 TAB 3 Refills 1 tab po daily 6X per week, and omit one day. Prov:JULIO REYEZ MD 01/01/18 Insulin Glargine 100 Un/Ml Pen (LANTUS SOLOSTAR PEN) 100 Unit/1 Ml Insuln.pen, 16 UNIT SQ QDAY, #1 BOX 12 Refills Prov:JULIO REYEZ MD 12/25/17 Lancets (SAFETY LANCETS) 1 Each Each, EACH MC Q30D, #100 12 Refills Use to test blood sugar twice daily Prov:JULIO REYEZ MD 09/26/17 Pantoprazole Sodium (PROTONIX) 40 Mg Tablet.dr, 1 CAP PO QDAY, #90 TAB.SR 4 Refills Prov:JULIO REYEZ MD 07/18/17 Polyethylene Glycol 3350 (MIRALAX) 17 Gm Powd.pack, 17 GM PO QDAY PRN for CONSTIPATION, #30 PKT 3 Refills Prov:JULIO REYEZ MD 02/22/17 Pen Needle, Diabetic (Insulin Pen Needle) 31 Gauge X 1/6" Dis.needle, EA MC Q30D, #100 12 Refills USE TO ADMINISTER INSULIN DAILY Prov:JULIO REYEZ MD 01/16/17 Blood Sugar Diagnostic (FREESTYLE LITE STRIPS) 1 Each Strip, 2 EACH MC Q30D, #100 STRIP 11 Refills Use to test blood sugars twice daily Prov:JULIO REYEZ MD 09/19/16 Albuterol Sulfate (ALBUTEROL SULFATE) 2.5 Mg/0.5 Ml Vial.neb, 2.5 MG IH Q1H PRN for WHEEZING, #90 INHALER 4 Refills Prov:MANUEL TAN APRN [employer]STRUCTION COST ESTIMATOR-C 06/19/16 Aspirin (ASPIRIN) 325 Mg Tablet, 1 TAB PO Q4-6H PRN for PAIN, #30 TAB 4 Refills to use for chest pain PRN Prov:MANUEL TAN APRNP-C 06/15/16 Polyvinyl Alcohol/Povidone (ARTIFICIAL TEARS DROPS) 15 Ml Drops, 1 DROP OP PRN, #1 BOTTLE 4 Refills 1 drop into each eye as needed for dry or irritated eyes Prov:MANUEL TAN APRNP-C 06/15/16 Calcium Carbonate (TUMS) 300 Mg Tab.chew, 2 TAB PO Q2H PRN for GAS/HEARTBURN, # 60 TAB.CHEW 5 Refills Prov:MANUEL TAN APRN [employer] COST ESTIMATOR-C 06/15/16 Acetaminophen (ACETAMINOPHEN) 500 Mg Tablet, 1 TAB PO Q4-6H PRN for PAIN, #30 TAB 4 Refills Prov:MANUEL TAN APRN [employer]ST ESTIMATOR-C 06/15/16 Vitamin B Complex (VITAMIN B COMPLEX) 1 Each Capsule, 1 TAB PO DAILY, #30 CAPSULE 11 Refills daily in the afternoon Prov:MANUEL TAN APRN [employer] COST ESTIMATOR-C 06/15/16 Cyanocobalamin (Vitamin B-12) (VITAMIN B-12) 500 Mcg Tablet, 1 TAB PO DAILY, #90 TAB 3 Refills Prov:MANUEL TAN APRN [employer] COST ESTIMATOR-C 06/15/16 Lactobacillus Acidophilus (ACIDOPHILUS LACTOBACILLUS) 1 Each Capsule, 1 TAB PO QDAY, #90 CAPSULE 3 Refills Prov:MANUEL TAN APRN [employer] COST ESTIMATOR-C 06/15/16 Hydrocortisone Acetate (HYDROCORTISONE ACETATE) 25 Mg Supp.rect, 1 SUPP.RECT RC BID, #60 SUPP.RECT Prov:MANUEL TAN APRN [facility] 06/15/16 Cholecalciferol (Vitamin D3) (VITAMIN D3) 1,000 Unit Capsule, 1000 UNIT PO BID, #60 CAPSULE 11 Refills Prov:MANUEL TAN APRN [facility]-C 06/15/16 Nitroglycerin (NITROSTAT) 0.4 Mg Subl, 0.4 MG SL Q5MIN, #15 TAB 0 Refills Prov:LESLIE BILL MD 08/04/15 Reported Medications Sodium Chloride/Aloe Vera (AYR SALINE NASAL GEL SPRAY) 22 Ml Colo, 22 ML NS QHS, #1 SPRAY 07/28/18 Magnesium Hydroxide (MILK OF MAGNESIA) 400 Mg/5 Ml Oral.susp, 5 ML PO PRN, BOTTLE 05/18/17 Mag Hydrox/Al Hydrox/Simeth (NE ACID SUSPENSION) 355 Ml Oral.susp, 5 ML PO BID PRN for DYSPEPSIA 05/18/17 Loperamide HCl (Imodium A-D) 2 Mg Capsule, 1 CAP PO after each loose 05/18/17 Acetaminophen (Acetaminophen) 325 Mg Capsule, 1-2 TAB PO Q4-6H 05/18/17 Amlodipine Besylate (AMLODIPINE BESYLATE) 5 Mg Tablet, 1 TAB PO QDAY, TAB 05/07/17 Atorvastatin Calcium (ATORVASTATIN CALCIUM) 10 Mg Tablet, 1 TAB PO QDAY, TAB 05/07/17 Vit A/Vit C/Vit E/Zinc/Copper (PRESERVISION AREDS TABLET) 1 Each Tablet, 1 TAB PO BID, TAB 06/26/16 Oxygen (Oxygen) 2 L Inha, 2 L INH cont 10/22/12 Discontinued Scripts Losartan Potassium (LOSARTAN POTASSIUM) 100 Mg Tablet, 1 TAB PO QDAY, #90 TAB 3 Refills Prov:JULIO REYEZ MD 02/27/18 Carvedilol (CARVEDILOL) 12.5 Mg Tablet, 1 TAB PO BID, #180 TAB 2 Refills Prov:MANUEL TAN APRN [employer] COST ESTIMATOR-C 06/15/16 Hx Smoking: Yes Smoking Status: Former Smoker Exposure to Second Hand Smoke?: No Hx Substance Use Disorder: No Hx Alcohol Use: No Constitutional Vital Sign - Last 24 Hours 09/04/18 08:20 Temp 98.3 Pulse 61 Resp 20 B/P (MAP) 136/100 Pulse Ox 99 O2 Delivery Nasal Cannula Physical Exam General Appearance: The patient is alert, has no immediate need for airway protection and no signs of toxicity. No acute distress Eyes: Pupils equal and round no pallor or injection. ENT, Mouth: Mucous membranes are moist. Respiratory: There are no retractions, lungs are clear to auscultation. Cardiovascular: Regular rate and rhythm Gastrointestinal: Abdomen is soft and non tender, no masses, bowel sounds normal. Neurological: Mild confusion, oriented to person and place, unable to recall recent events, moving all extremities spontaneously Skin: Warm and dry, no rashes. Musculoskeletal: Neck is supple non tender. Extremities are nontender, nonswollen and have full range of motion. DIFFERENTIAL DIAGNOSIS: After history and physical exam differential diagnosis was considered for trauma, TIA, dehydration, hypotension, electrolyte abnormality, infection, urinary tract infection Medical Decision Making Data Points Result Diagram: 09/04/18 0828 09/04/18 0828 Laboratory Hematology Test 09/04/18 08:28 09/04/18 09:09 Red Blood Count 4.71 M/uL (4.17-5.56) Mean Corpuscular Volume 87.0 fL (80.0-96.0) Mean Corpuscular Hemoglobin 29.0 pg (26.0-33.0) Mean Corpuscular Hemoglobin Concent 33.4 g/dL (32.0-36.0) Red Cell Distribution Width 14.0 % (11.5-14.5) Mean Platelet Volume 8.3 fL (7.2-11.1) Neutrophils (%) (Auto) 88.7 % (39.4-72.5) Lymphocytes (%) (Auto) 1.5 % (17.6-49.6) Monocytes (%) (Auto) 9.4 % (4.1-12.4) Eosinophils (%) (Auto) 0.2 % (0.4-6.7) Basophils (%) (Auto) 0.2 % (0.3-1.4) Nucleated RBC Relative Count (auto) 0.0 /100WBC Neutrophils # (Auto) 4.5 K/uL (2.0-7.4) Lymphocytes # (Auto) 0.1 K/uL (1.3-3.6) Monocytes # (Auto) 0.5 K/uL (0.3-1.0) Eosinophils # (Auto) 0.0 K/uL (0.0-0.5) Basophils # (Auto) 0.0 K/uL (0.0-0.1) Nucleated RBC Absolute Count (auto) 0.00 K/uL Prothrombin Time 25.1 seconds (12.0-14.4) Prothromb Time International Ratio 2.23 Activated Partial Thromboplast Time 38 seconds (23-35) Blood Gas Patient Temperature 98.3 DEGREES Venous Blood pH 7.31 (7.31-7.41) Venous Blood Partial Pressure CO2 50 mmHg Venous Blood Partial Pressure O2 < 35 mmHg Venous Blood HCO3 25 mmol/L Venous Blood Oxygen Saturation 53 % Venous Blood Base Excess -1 mmol/L Oxygen Liters/Minute 2l Sodium Level 135 mmol/L (137-145) Potassium Level 4.1 mmol/L (3.5-5.0) Chloride Level 102 mmol/L (98-107) Carbon Dioxide Level 26 mmol/L (22-31) Blood Urea Nitrogen 21 mg/dl (7-18) Creatinine 0.90 mg/dl (0.52-1.04) Glomerular Filtration Rate Calc 59.9 Random Glucose 137 mg/dl (75-110) Calcium Level 8.2 mg/dl (8.4-10.2) Total Bilirubin 0.8 mg/dl (0.2-1.3) Aspartate Amino Transf (AST/SGOT) 27 U/L (0-35) Alanine Aminotransferase (ALT/SGPT) 30 U/L (0-56) Alkaline Phosphatase 67 U/L (0-126) Total Protein 6.9 g/dl (6.3-8.2) Albumin 4.2 g/dl (3.5-5.0) Urine Color Yellow Urine Clarity Clear Urine pH 5.0 pH (4.8-9.5) Urine Specific [place] 1.013 Urine Protein Negative mg/dL (NEGATIVE) Urine Glucose (UA) Negative mg/dL (NEGATIVE) Urine Ketones Negative mg/dL (NEGATIVE) Urine Blood Negative (NEGATIVE) Urine Nitrite Negative (NEGATIVE) Urine Bilirubin Negative (NEGATIVE) Urine Urobilinogen Negative mg/dL (0.2-1.9) Urine Leukocyte Esterase Negative (NEGATIVE) Urine RBC None /HPF (0-2/HPF) Urine WBC <1 /HPF (0-5/HPF) Urine Squamous Epithelial Cells Many /LPF (</=FEW) Urine Bacteria Negative /HPF (NONE-FEW) Urine Hyaline Casts Few /LPF (NONE-FEW) Urine Mucus None /HPF (NONE-FEW) Chemistry Test 09/04/18 08:28 09/04/18 09:09 White Blood Count 5.1 k/uL (4.5-11.0) Red Blood Count 4.71 M/uL (4.17-5.56) Hemoglobin 13.7 g/dL (12.0-16.0) Hematocrit 41.0 % (34.0-47.0) Mean Corpuscular Volume 87.0 fL (80.0-96.0) Mean Corpuscular Hemoglobin 29.0 pg (26.0-33.0) Mean Corpuscular Hemoglobin Concent 33.4 g/dL (32.0-36.0) Red Cell Distribution Width 14.0 % (11.5-14.5) Platelet Count 164 K/uL (150-450) Mean Platelet Volume 8.3 fL (7.2-11.1) Neutrophils (%) (Auto) 88.7 % (39.4-72.5) Lymphocytes (%) (Auto) 1.5 % (17.6-49.6) Monocytes (%) (Auto) 9.4 % (4.1-12.4) Eosinophils (%) (Auto) 0.2 % (0.4-6.7) Basophils (%) (Auto) 0.2 % (0.3-1.4) Nucleated RBC Relative Count (auto) 0.0 /100WBC Neutrophils # (Auto) 4.5 K/uL (2.0-7.4) Lymphocytes # (Auto) 0.1 K/uL (1.3-3.6) Monocytes # (Auto) 0.5 K/uL (0.3-1.0) Eosinophils # (Auto) 0.0 K/uL (0.0-0.5) Basophils # (Auto) 0.0 K/uL (0.0-0.1) Nucleated RBC Absolute Count (auto) 0.00 K/uL Prothrombin Time 25.1 seconds (12.0-14.4) Prothromb Time International Ratio 2.23 Activated Partial Thromboplast Time 38 seconds (23-35) Blood Gas Patient Temperature 98.3 DEGREES Venous Blood pH 7.31 (7.31-7.41) Venous Blood Partial Pressure CO2 50 mmHg Venous Blood Partial Pressure O2 < 35 mmHg Venous Blood HCO3 25 mmol/L Venous Blood Oxygen Saturation 53 % Venous Blood Base Excess -1 mmol/L Oxygen Liters/Minute 2l Glomerular Filtration Rate Calc 59.9 Calcium Level 8.2 mg/dl (8.4-10.2) Total Bilirubin 0.8 mg/dl (0.2-1.3) Aspartate Amino Transf (AST/SGOT) 27 U/L (0-35) Alanine Aminotransferase (ALT/SGPT) 30 U/L (0-56) Alkaline Phosphatase 67 U/L (0-126) Total Protein 6.9 g/dl (6.3-8.2) Albumin 4.2 g/dl (3.5-5.0) Urine Color Yellow Urine Clarity Clear Urine pH 5.0 pH (4.8-9.5) Urine Specific [place] 1.013 Urine Protein Negative mg/dL (NEGATIVE) Urine Glucose (UA) Negative mg/dL (NEGATIVE) Urine Ketones Negative mg/dL (NEGATIVE) Urine Blood Negative (NEGATIVE) Urine Nitrite Negative (NEGATIVE) Urine Bilirubin Negative (NEGATIVE) Urine Urobilinogen Negative mg/dL (0.2-1.9) Urine Leukocyte Esterase Negative (NEGATIVE) Urine RBC None /HPF (0-2/HPF) Urine WBC <1 /HPF (0-5/HPF) Urine Squamous Epithelial Cells Many /LPF (</=FEW) Urine Bacteria Negative /HPF (NONE-FEW) Urine Hyaline Casts Few /LPF (NONE-FEW) Urine Mucus None /HPF (NONE-FEW) Coagulation Test 09/04/18 08:28 Prothrombin Time 25.1 seconds Prothromb Time International Ratio 2.23 Activated Partial Thromboplast Time 38 seconds Urinalysis Test 09/04/18 09:09 Urine Color Yellow Urine Clarity Clear Urine pH 5.0 pH (4.8-9.5) Urine Specific [place] 1.013 Urine Protein Negative mg/dL (NEGATIVE) Urine Glucose (UA) Negative mg/dL (NEGATIVE) Urine Ketones Negative mg/dL (NEGATIVE) Urine Blood Negative (NEGATIVE) Urine Nitrite Negative (NEGATIVE) Urine Bilirubin Negative (NEGATIVE) Urine Urobilinogen Negative mg/dL (0.2-1.9) Urine Leukocyte Esterase Negative (NEGATIVE) Urine RBC None /HPF (0-2/HPF) Urine WBC <1 /HPF (0-5/HPF) Urine Squamous Epithelial Cells Many /LPF (</=FEW) Urine Bacteria Negative /HPF (NONE-FEW) Urine Hyaline Casts Few /LPF (NONE-FEW) Urine Mucus None /HPF (NONE-FEW) EKG/Imaging EKG Interpretation PATIENT NAME: LACI QUIROZ DOB: [id number] MR: [id number] V: [id number] EXAM DATE: ORDERING PHYSICIAN: FARHAT ANSARI TECHNOLOGIST: Test Reason : irregular rate Blood Pressure : / mmHG Vent. Rate : 060 BPM Atrial Rate : 060 BPM P-R Int : 156 ms QRS Dur : 086 ms QT Int : 470 ms P-R-T Axes : 066 028 045 degrees QTc Int : 470 ms Electronic atrial pacemaker When compared with ECG of 28-JUL-2018 08:05, No significant change was found Referred By: Confirmed By: Monitor Interpretation: Normal Sinus Rhythm Imaging Location: [facility] [place] Patient: Laci Quiroz : 1935 Visit/Account:[id number] Date of Sevice: 09/04/2018 EXAMINATION: Head CT without intravenous contrast HISTORY: Confusion TECHNIQUE: Contiguous axial images were obtained from the skull base to the vertex without intravenous contrast. Sagittal and coronal reformatted images are also submitted. Dose Lowering Technique One of the following dose optimization techniques was utilized in the performance of this exam: Automated exposure control; adjustment of the mA and/or kV according to the patient's size; or use of an iterative reconstruction technique. Specific details can be referenced in the facility's radiology CT exam operational policy. COMPARISON: December 16, 2017 FINDINGS: Brain volume: There is moderate diffuse central and cortical atrophy Ventricles: Moderate central atrophy although appear stable when compared to the prior study Acute ischemic changes: None. Hemorrhage: None. Masses / edema: None. Alfaro-white: Negative. White matter: Extensive areas of decreased attenuation seen throughout the periventricular white matter and within both cerebellar hemispheres that appear stable when compared to the prior study and likely related to chronic small vessel ischemia Vessels: There are dense vascular calcifications in the vertebral arteries was lesser extent the carotid siphons Extra-axial: Negative. Calvarium / scalp: Negative. Skull base / visualized face: Negative. Visualized sinuses / orbits: Negative. IMPRESSION: Moderate diffuse central cortical atrophy and extensive chronic microischemic changes Joint are white matter and in both cerebral hemispheres appears stable when compared to the prior study Vascular calcination occasions are identified in the vertebral arteries and carotid siphons bilaterally ED Course/Re-evaluation ED Course Patient is an 82-year-old female here with complaints of increasing confusion over the past 2 days. Patient was found on the ground this morning by nursing st aff prompting CT imaging of the head. Patient was also noted to have a rapid irregular heart rate with a known history of atrial fibrillation but was noted to be in normal sinus rhythm this morning confirmed by EKG. CT imaging of the head showed no acute fractures or bleeds. Electrolytes, kidney function, urinalysis were found to be normal. Patient was given a liter of normal saline fluid for hydration initially examined is dehydrated initially. Patient remained hemodynamically stable throughout course, blood pressure unremarkable, patient was not tachycardic throughout evaluation. I discussed these findings with the patient and the patient's family. Recommend close follow-up with PCP. Return precautions provided. Decision to Disposition Date: Sep 04, 2018 Decision to Disposition Time: 09:54 Depart Departure Latest Vital Signs Vital Signs Date Time Temp Pulse Resp B/P (MAP) Pulse Ox O2 Delivery O2 Flow Rate FiO2 09/04/18 08:20 98.3 61 20 136/100 99 Nasal Cannula Impression: Primary Impression: Dehydration Additional Impression: Confusion Condition: Improved Disposition: HOME OR SELF-CARE Referrals: JULIO REYEZ MD (PCP) Patient Instructions: Dehydration (ED) Additional Instructions: Please follow-up with your family doctor in the next 2-3 days. Please focus on maintaining her hydration status as you seem to be dehydrated today. Your blood counts, electrolytes, kidney function, urinalysis were found to be normal today. Your CT scan of the head was also found be normal. Please return immediately should develop fevers, increased confusion, recurrent falls, inability to keep down food or fluids, abdominal pain, nausea, vomiting, diarrhea. Problem Qualifiers FARHAT ANSARI DO Sep 04, 2018 08:17
[2018-09-04] MEDS ORDERED: NS(*) 0.9% 1000 ML BAG 1,000 ML IV ONE (08:24)
[2018-09-04 08:39] LABS: PLATELET COUNT, AUTOMATED 164 K/uL (150-450)
[2018-09-04] MEDS ORDERED: LORazepam 2 MG/ML VIAL IM ONE (08:40)
[2018-09-04 08:44] LABS: INR 2.23
--- NOTE | 2018-09-04 09:00 | EKG ---
[place] [facility] [place] NAME: LACI QUIROZ : [id number] MR: [id number] V: [id number] EXAM DATE: ORDERING PHYSICIAN: FARHAT ANSARI TECHNOLOGIST: Test Reason : irregular rate Blood Pressure : / mmHG Vent. Rate : 060 BPM Atrial Rate : 060 BPM P-R Int : 156 ms QRS Dur : 086 ms QT Int : 470 ms P-R-T Axes : 066 028 045 degrees QTc Int : 470 ms Electronic atrial pacemaker When compared with ECG of 28-JUL-2018 08:05, No significant change was found Confirmed by SHANNA PETIT ([id number]) on 09/04/2018 3:24:42 PM Referred By: Confirmed By:SHANNA PETIT
--- NOTE | 2018-09-04 09:06 | RADIOLOGY IMAGING REPORT ---
FACILITY: [facility] - [place] PATIENT NAME: Reina Ocasio : 1935 MR: [id number] V: [id number] EXAM DATE: ORDERING PHYSICIAN: FARHAT ANSARI TECHNOLOGIST: Location: [facility] Patient: Reina Ocasio : 1935 Visit/Account:[id number] Date of Sevice: 09/04/2018 EXAMINATION: Head CT without intravenous contrast HISTORY: Confusion TECHNIQUE: Contiguous axial images were obtained from the skull base to the vertex without intraven ous contrast. Sagittal and coronal reformatted images are also submitted. Dose Lowering Technique One of the following dose optimization techniques was utilized in the performance of this exam: Autom ated exposure control; adjustment of the mA and/or kV according to the patient's size; or use of an i terative reconstruction technique. Specific details can be referenced in the facility's radiology C T exam operational policy. COMPARISON: December 16, 2017 FINDINGS: Brain volume: There is moderate diffuse central and cortical atrophy Ventricles: Moderate central atrophy although appear stable when compared to the prior study Acute ischemic changes: None. Hemorrhage: None. Masses / edema: None. Alfaro-white: Negative. White matter: Extensive areas of decreased attenuation seen throughout the periventricular white mat ter and within both cerebellar hemispheres that appear stable when compared to the prior study and julita villatoro related to chronic small vessel ischemia Vessels: There are dense vascular calcifications in the vertebral arteries was lesser extent the car otid siphons Extra-axial: Negative. Calvarium / scalp: Negative. Skull base / visualized face: Negative. Visualized sinuses / orbits: Negative. IMPRESSION: Moderate diffuse central cortical atrophy and extensive chronic microischemic changes Joint are white matter and in both cerebral hemispheres appears stable when compared to the prior [place] Vascular calcination occasions are identified in the vertebral arteries and carotid siphons bilateral ly Report Dictated By: Grace Holman MD at 09/04/2018 8:55 AM Report E-Signed By: Grace Holman MD at 09/04/2018 9:02 AM WSN:[id number]
[2018-09-04 10:00] VITALS: BP 108/52
== END 2018-09-04 10:33 | disposition home or self-care (01) ==
LOC: ER 08:27
DX: E86.0 Dehydration (principal); R41.0 Disorientation, unspecified; Z79.01 Long term (current) use of anticoagulants
CPT/HCPCS: 70450; 81001; 82803; 85025; 85610; 85730; 93005; 96360; 99284; J7030; 82040; 82247; 82310; 82374; 82435; 82565; 82947; 84075; 84132; 84155; 84295; 84450; 84460; 84520

== ENCOUNTER → 2018-09-09 | Outpatient (CLI) | payer MEDICARE, OTHER ==
[2014-10-05 12:21] VITALS: BMI 26.5
[~2018-09-09] MED LIST changes: +ERGO500037 PO
[2018-09-09 08:29] LABS: INR 2.58
== END ==
LOC: ZZSPRING 00:32
PROVIDERS: ATTEND Pharmacist Pharmacotherapy
DX: I48.91 Unspecified atrial fibrillation (principal)
CPT/HCPCS: 36415; 85610

== ENCOUNTER → 2018-09-09 | Outpatient (CLI) | payer MEDICARE, OTHER ==
[2014-10-05 12:21] VITALS: BMI 26.5
== END ==
LOC: LAB 11:35
PROVIDERS: ATTEND Internal Medicine
DX: R41.0 Disorientation, unspecified (principal); E83.51 Hypocalcemia; R32 Unspecified urinary incontinence; E55.9 Vitamin D deficiency, unspecified
CPT/HCPCS: 36415; 81001; 82040; 82247; 82306; 82310; 82374; 82435; 82565; 82947; 83735; 84075; 84132; 84155; 84295; 84450; 84460; 84520

== ENCOUNTER → 2018-09-16 | Outpatient (CLI) | payer MEDICARE, OTHER ==
[2014-10-05 12:21] VITALS: BMI 26.5
[2018-09-16 08:44] LABS: INR 1.97
== END ==
LOC: ZZSPRING 01:14
PROVIDERS: ATTEND Pharmacist Pharmacotherapy
DX: I48.2 Chronic atrial fibrillation (principal)
CPT/HCPCS: 36415; 85610

== ENCOUNTER → 2018-09-16 | Outpatient (CLI) | payer MEDICARE, OTHER ==
[2014-10-05 12:21] VITALS: BMI 26.5
== END ==
LOC: LAB 14:46
PROVIDERS: ATTEND Internal Medicine
DX: R35.0 Frequency of micturition (principal)
CPT/HCPCS: 81001

== ENCOUNTER → 2018-09-30 | Outpatient (CLI) | payer MEDICARE, OTHER ==
[2014-10-05 12:21] VITALS: BMI 26.5
[2018-09-30 08:59] LABS: INR 2.49
== END ==
LOC: ZZSPRING 02:54
PROVIDERS: ATTEND Pharmacist Pharmacotherapy
DX: I48.2 Chronic atrial fibrillation (principal)
CPT/HCPCS: 36415; 85610

== ENCOUNTER → 2018-10-07 | Outpatient (CLI) | payer MEDICARE, OTHER ==
[2014-10-05 12:21] VITALS: BMI 26.5
[2018-10-07 08:44] LABS: INR 2.67
== END ==
LOC: ZZSPRING 02:16
PROVIDERS: ATTEND Pharmacist Pharmacotherapy
DX: I48.2 Chronic atrial fibrillation (principal)
CPT/HCPCS: 36415; 85610

== ENCOUNTER → 2018-10-27 | Outpatient (REF) | payer MEDICARE, OTHER ==
[2014-10-05 12:21] VITALS: BMI 26.5
== END ==
LOC: ZZSPRING 16:27
PROVIDERS: ATTEND Nurse Practitioner Family
DX: R35.0 Frequency of micturition (principal); R30.0 Dysuria
CPT/HCPCS: 81001

== ENCOUNTER → 2018-11-04 | Outpatient (CLI) | payer MEDICARE, OTHER ==
[2014-10-05 12:21] VITALS: BMI 26.5
[~2018-11-04] MED LIST changes: +CHOL500016 PO
[2018-11-04 08:21] LABS: INR 3.21
== END ==
LOC: ZZSPRING 01:33
PROVIDERS: ATTEND Pharmacist Pharmacotherapy
DX: I48.2 Chronic atrial fibrillation (principal)
CPT/HCPCS: 36415; 85610

== ENCOUNTER → 2018-11-04 | Outpatient (CLI) | payer MEDICARE, OTHER ==
[2014-10-05 12:21] VITALS: BMI 26.5
== END ==
LOC: ZZSPRING 01:33
PROVIDERS: ATTEND Internal Medicine
DX: E55.9 Vitamin D deficiency, unspecified (principal); I48.2 Chronic atrial fibrillation
CPT/HCPCS: 36415; 82306

== ENCOUNTER → 2018-11-11 | Outpatient (CLI) | payer MEDICARE, OTHER ==
[2014-10-05 12:21] VITALS: BMI 26.5
== END ==
LOC: RAD 16:04
PROVIDERS: ATTEND Nurse Practitioner Family
DX: M25.511 Pain in right shoulder (principal)

== ENCOUNTER → 2018-11-11 | Outpatient (CLI) | payer MEDICARE, OTHER ==
[2014-10-05 12:21] VITALS: BMI 26.5
[2018-11-11 08:32] LABS: INR 3.33
== END ==
LOC: ZZSPRING 02:13
PROVIDERS: ATTEND Pharmacist Pharmacotherapy
DX: I48.2 Chronic atrial fibrillation (principal)
CPT/HCPCS: 36415; 85610

== ENCOUNTER → 2018-11-11 | Outpatient (CLI) | payer MEDICARE, OTHER ==
[2014-10-05 12:21] VITALS: BMI 26.5
--- NOTE | 2018-11-12 00:20 | RADIOLOGY IMAGING REPORT ---
FACILITY: [facility] PATIENT NAME: Reina Ocasio : 1935 MR: [id number] V: [id number] EXAM DATE: [id number] ORDERING PHYSICIAN: MANUEL TAN TECHNOLOGIST: Location: [facility] Patient: Reina Ocasio : 1935 Visit/Account:[id number] Date of Sevice: 11/11/2018 INDICATION: Right shoulder pain after a fall one week ago. EXAM DATE: 11/11/2018 4:06 PM COMPARISON: 10/01/2014. FINDINGS: 4 views of the right shoulder. Mineralization appears low. No acute alignment abnormality or fractur e. 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 Multifocal hetero topic ossification around the glenohumeral joint similar to prior. Soft tissues are nonacute. Incom pletely imaged implanted pacer. IMPRESSION: 1. No apparent acute osseous abnormality of the right shoulder. 2. 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 3. Low bone mineralization. Report Dictated By: Eriberto Caballero MD at 11/12/2018 12:13 AM Report E-Signed By: Eriberto Caballero MD at 11/12/2018 12:16 AM WSN:[id number]
== END ==
LOC: LAB 15:52
PROVIDERS: ATTEND Nurse Practitioner Family
DX: Z02.9 Encounter for administrative examinations, unspecified (principal)

== ENCOUNTER → 2018-11-18 | Outpatient (CLI) | payer MEDICARE, OTHER ==
[2014-10-05 12:21] VITALS: BMI 26.5
[2018-11-18 08:41] LABS: INR 2.12
== END ==
LOC: ZZSPRING 02:35
PROVIDERS: ATTEND Pharmacist Pharmacotherapy
DX: I48.2 Chronic atrial fibrillation (principal)
CPT/HCPCS: 36415; 85610

== ENCOUNTER → 2018-11-18 | Outpatient (CLI) | payer MEDICARE, OTHER ==
[2014-10-05 12:21] VITALS: BMI 26.5
== END ==
LOC: ZZSPRING 02:36
PROVIDERS: ATTEND Nurse Practitioner Family
DX: E03.9 Hypothyroidism, unspecified (principal); I10 Essential (primary) hypertension; E11.9 Type 2 diabetes mellitus without complications
CPT/HCPCS: 36415; 82040; 82247; 82310; 82374; 82435; 82565; 82947; 83036; 84075; 84132; 84155; 84295; 84443; 84450; 84460; 84520; 85027

== ENCOUNTER → 2018-12-02 | Outpatient (CLI) | payer MEDICARE, OTHER ==
[2014-10-05 12:21] VITALS: BMI 26.5
[2018-12-02 08:25] LABS: INR 2.36
== END ==
LOC: ZZSPRING 01:00
PROVIDERS: ATTEND Pharmacist Pharmacotherapy
DX: I48.2 Chronic atrial fibrillation (principal)
CPT/HCPCS: 36415; 85610

== ENCOUNTER → 2018-12-16 | Outpatient (CLI) | payer MEDICARE, OTHER ==
[2014-10-05 12:21] VITALS: BMI 26.5
[~2018-12-16] MED LIST changes: -CYAN500T38 PO; +CYAN500T39 PO
[2018-12-16 08:46] LABS: INR 2.72
== END ==
LOC: ZZSPRING 08:00
PROVIDERS: ATTEND Pharmacist Pharmacotherapy
DX: I48.91 Unspecified atrial fibrillation (principal)
CPT/HCPCS: 36415; 85610

== ENCOUNTER → 2018-12-30 | Outpatient (CLI) | payer MEDICARE, OTHER ==
[2014-10-05 12:21] VITALS: BMI 26.5
[2018-12-30 09:07] LABS: PLATELET COUNT, AUTOMATED 227 K/uL (150-450)
[2018-12-30 09:57] LABS: LDL CHOLESTEROL 66 mg/dl
== END ==
LOC: EDSTATUS 06:59 → LAB 07:11
PROVIDERS: ATTEND Nurse Practitioner Family
DX: E55.9 Vitamin D deficiency, unspecified (principal); E87.6 Hypokalemia; E03.9 Hypothyroidism, unspecified; D64.9 Anemia, unspecified; E53.8 Deficiency of other specified B group vitamins; E11.9 Type 2 diabetes mellitus without complications
CPT/HCPCS: 36415; 82040; 82247; 82306; 82310; 82374; 82435; 82465; 82565; 82607; 82728; 82746; 82947; 83036; 83540; 83550; 83718; 84075; 84132; 84155; 84295; 84443; 84450; 84460; 84478; 84520; 85025

== ENCOUNTER → 2019-01-13 | Outpatient (CLI) | payer MEDICARE, OTHER ==
[2014-10-05 12:21] VITALS: BMI 26.5
[2019-01-13 08:50] LABS: INR 1.88
== END ==
LOC: ZZSPRING 01:39
PROVIDERS: ATTEND Pharmacist Pharmacotherapy
DX: I48.2 Chronic atrial fibrillation (principal)
CPT/HCPCS: 36415; 85610

== ENCOUNTER → 2019-01-27 | Outpatient (CLI) | payer MEDICARE, OTHER ==
[2014-10-05 12:21] VITALS: BMI 26.5
[2019-01-27 08:46] LABS: INR 2.42
== END ==
LOC: ZZSPRING 00:02
PROVIDERS: ATTEND Pharmacist Pharmacotherapy
DX: I48.91 Unspecified atrial fibrillation (principal)
CPT/HCPCS: 36415; 85610

== ENCOUNTER → 2019-02-24 | Outpatient (CLI) | payer MEDICARE, OTHER ==
[2014-10-05 12:21] VITALS: BMI 26.5
[2019-02-24 09:19] LABS: INR 3.09
== END ==
LOC: ZZSPRING 02:00
PROVIDERS: ATTEND Pharmacist Pharmacotherapy
DX: Z51.81 Encounter for therapeutic drug level monitoring (principal); I48.91 Unspecified atrial fibrillation; Z79.01 Long term (current) use of anticoagulants
CPT/HCPCS: 36415; 85610

== ENCOUNTER 2019-03-09 21:12 | Emergency (ER) | payer MEDICARE, OTHER ==
[2014-10-05 12:21] VITALS: Wt 71.2 kg
--- NOTE | 2019-03-09 21:26 | ER Report ---
History and Physical Time Seen By MD: 21:22 HPI/ROS CHIEF COMPLAINT: dizziness, off balance HISTORY OF PRESENT ILLNESS: This is an 83 year old female. She came to the ER because of feeling off balance. When walking felt like she was listing to the left. Never felt like her legs or arms were weak. She has not been drinking as much fluids as she should and may be dehyrated. Also thinks this might have been a urinary tract infection with some urinary urgency recently. No nausea or vomiting. Normal bowels. No chest pain or palpitations. No shortness of breath or cough. No fevers or chills. No vision changes. No headache. No abdominal pain. Does have dementia and has had a little more repetitive questioning tonight. Allergies: Coded Allergies: Penicillins (Verified Allergy, Severe, hives, 07/28/18) Sulfa (Sulfonamide Antibiotics) (Verified Allergy, Severe, hives, 07/28/18) fluorescein (Verified Allergy, Severe, anaphylaxis, 07/28/18) codeine (Verified Allergy, Intermediate, 07/28/18) erythromycin base (Verified Allergy, Mild, 07/28/18) rofecoxib (Verified Allergy, Unknown, 07/28/18) morphine (Verified Adverse Reaction, Mild, GI upset, 07/28/18) Home Meds Active Scripts Losartan Potassium (LOSARTAN POTASSIUM) 50 Mg Tablet, 1 TAB PO QDAY, #90 TAB 3 Refills Prov:MANUEL TAN APRN-C 03/02/19 Pen Needle, Diabetic (Insulin Pen Needle) 31 Gauge X 1/6" Dis.needle, [facility] Q30D, #100 12 Refills USE TO ADMINISTER INSULIN DAILY Prov:MANUEL TAN APRN-C 02/06/19 Levothyroxine Sodium (LEVOTHYROXINE SODIUM) 100 Mcg Tablet, 1 TAB PO QDAY, #90 TAB 1 Refill Prov:MANUEL TAN APRN-C 02/06/19 Folic Acid (FOLIC ACID) 1 Mg Tablet, 1 TAB PO QDAY, #90 TAB 0 Refills Prov:MANUEL TAN APRN-C 01/08/19 Pantoprazole Sodium (PROTONIX) 40 Mg Tablet.dr, 1 CAP PO QDAY, #90 TAB.SR 2 Refills Prov:MANUEL TAN APRN-C 01/08/19 Blood Sugar Diagnostic (FREESTYLE LITE STRIPS) 1 Each Strip, 2 EACH MC Q30D, #10 0 STRIP 10 Refills Use to test blood sugars twice daily Prov:MANUEL TAN APRNP-C 12/10/18 Paroxetine Hcl (PAROXETINE HCL) 20 Mg Tablet, 1 TAB PO QDAY, #30 TAB 4 Refills Prov:MANUEL TAN APRN-C 12/05/18 Mirabegron (MYRBETRIQ) 50 Mg Tab.er.24h, 50 MG PO DAILY for 30 Days, #30 CAP 3 Refills Prov:KAY AVENDAÑO MD 11/18/18 Cholecalciferol (Vitamin D3) (VITAMIN D3) 5,000 Unit Capsule, 1 CAP PO DAILY, #30 CAPSULE 5 Refills Prov:MANUEL TAN APRN-Michael 11/06/18 Trazodone Hcl (TRAZODONE HCL) 100 Mg Tablet, 1 TAB PO QHS, #90 TAB 1 Refill Prov:MANUEL TNA APRN-C 10/16/18 Insulin Glargine 100 Un/Ml Pen (LANTUS SOLOSTAR PEN) 100 Unit/1 Ml Insuln.pen, 16 UNIT SQ QDAY, #1 BOX 5 Refills Prov:JULIO REYEZ MD 09/29/18 Ergocalciferol (Vitamin D2) (VITAMIN D2) 50,000 Unit Capsule, 1 CAP PO QWEEK, #8 CAPSULE 0 Refills Prov:JULIO REYEZ MD 09/09/18 Carvedilol (COREG) 12.5 Mg Tablet, 1 TAB PO BID, #60 TAB 5 Refills Prov:JULIO REYEZ MD 09/09/18 Warfarin Sodium (WARFARIN SODIUM) 5 Mg Tablet, 5 MG PO QDAY for 30 Days, #102 TAB 5 Refills Pineda 5 MG, M 5 MG, Tu 5 MG, W 7.5 MG, Th 5 MG, F 5 MG, Sa 7.5 MG Prov:JULIO REYEZ MD 03/05/18 Oxybutynin Chloride (OXYBUTYNIN CHLORIDE ER) 5 Mg Tab.er.24, 1 TAB PO QDAY, #90 TAB.SA 3 Refills Prov:JULIO REYEZ MD 03/05/18 Ferrous Sulfate (FERROUS SULFATE) 325 Mg Tablet, 1 TAB PO BID, #180 TAB 3 Refills Prov:JULIO REYEZ MD 03/05/18 Lancets (SAFETY LANCETS) 1 Each Each, EACH MC Q30D, #100 12 Refills Use to test blood sugar twice daily Prov:JULIO REYEZ MD 09/26/17 Polyethylene Glycol 3350 (MIRALAX) 17 Gm Powd.pack, 17 GM PO QDAY PRN for CONSTIPATION, #30 PKT 3 Refills Prov:JULIO REYEZ MD 02/22/17 Albuterol Sulfate (ALBUTEROL SULFATE) 2.5 Mg/0.5 Ml Vial.neb, 2.5 MG IH Q1H PRN for WHEEZING, #90 INHALER 4 Refills Prov:MANUEL TAN APRNP-C 06/19/16 Aspirin (ASPIRIN) 325 Mg Tablet, 1 TAB PO Q4-6H PRN for PAIN, #30 TAB 4 Refills to use for chest pain PRN Prov:MANUEL TAN APRN-C 06/15/16 Polyvinyl Alcohol/Povidone (ARTIFICIAL TEARS DROPS) 15 Ml Drops, 1 DROP OP PRN, #1 BOTTLE 4 Refills 1 drop into each eye as needed for dry or irritated eyes Prov:MANUEL TAN APRNP-C 06/15/16 Calcium Carbonate (TUMS) 300 Mg Tab.chew, 2 TAB PO Q2H PRN for GAS/HEARTBURN, #60 TAB.CHEW 5 Refills Prov:MANUEL TAN APRNP-C 06/15/16 Acetaminophen (ACETAMINOPHEN) 500 Mg Tablet, 1 TAB PO Q4-6H PRN for PAIN, #30 TAB 4 Refills Prov:MANUEL TAN APRNP-C 06/15/16 Vitamin B Complex (VITAMIN B COMPLEX) 1 Each Capsule, 1 TAB PO DAILY, #30 CAPSULE 11 Refills daily in the afternoon Prov:MANUEL TAN APRNP-C 06/15/16 Cyanocobalamin (Vitamin B-12) (VITAMIN B-12) 500 Mcg Tablet, 1 TAB PO DAILY, #90 TAB 3 Refills Prov:REUBENMANUEL LANDERS MARCELA ROSASP-C 06/15/16 Lactobacillus Acidophilus (ACIDOPHILUS LACTOBACILLUS) 1 Each Capsule, 1 TAB PO QDAY, #90 CAPSULE 3 Refills Prov:MANUEL TAN MARCELA ROSASP-C 06/15/16 Hydrocortisone Acetate (HYDROCORTISONE ACETATE) 25 Mg Supp.rect, 1 SUPP.RECT RC BID, #60 SUPP.RECT Prov:MANUEL TAN APRNP-C 06/15/16 Nitroglycerin (NITROSTAT) 0.4 Mg Subl, 0.4 MG SL Q5MIN, #15 TAB 0 Refills Prov:LESLIE BILL MD 08/04/15 Reported Medications Sodium Chloride/Aloe Vera (AYR SALINE NASAL GEL SPRAY) 22 Ml Cameron, 22 ML NS QHS, #1 SPRAY 07/28/18 Magnesium Hydroxide (MILK OF MAGNESIA) 400 Mg/5 Ml Oral.susp, 5 ML PO PRN, MP LE 05/18/17 Mag Hydrox/Al Hydrox/Simeth (DC ACID SUSPENSION) 355 Ml Oral.susp, 5 ML PO BID PRN for DYSPEPSIA 05/18/17 Loperamide HCl (Imodium A-D) 2 Mg Capsule, 1 CAP PO after each loose 05/18/17 Acetaminophen (Acetaminophen) 325 Mg Capsule, 1-2 TAB PO Q4-6H 05/18/17 Amlodipine Besylate (AMLODIPINE BESYLATE) 5 Mg Tablet, 1 TAB PO QDAY, TAB 05/07/17 Atorvastatin Calcium (ATORVASTATIN CALCIUM) 10 Mg Tablet, 1 TAB PO QDAY, TAB 05/07/17 Vit A/Vit C/Vit E/Zinc/Copper (PRESERVISION AREDS TABLET) 1 Each Tablet, 1 TAB PO BID, TAB 06/26/16 Oxygen (Oxygen) 2 L Inha, 2 L INH cont 10/22/12 Reviewed Nurses Notes: Yes Hx Smoking: Yes Smoking Status: Former Smoker Exposure to Second Hand Smoke?: No Hx Substance Use Disorder: No Hx Alcohol Use: No Constitutional Vital Sign - Last 24 Hours 03/09/19 03/09/19 03/09/19 21:30 21:42 22:42 Temp 97.8 Pulse 123 61 62 Resp 16 10 B/P (MAP) 141/81 138/77 (97) Pulse Ox 97 95 96 O2 Delivery Room Air Intake and Output 03/09/19 03/09/19 03/10/19 15:03 23:03 07:03 Intake Total 1000 ml Balance 1000 ml Physical Exam General Appearance: The patient is alert. No immediate need for airway protection. No acute distress. Non-toxic in appearance. Eyes: Pupils are equal, round. Reactive to light. No pallor, injection or icterus. Extraocular movements are intact. Normal peripheral albright. No nystagmus. ENT: Mucous membranes are moist. Normal oral mucosa. Posterior oropharynx is normal. Normal tympanic membranes and canals. Neck: Supple and non tender. Respiratory: Lungs are clear to auscultation. Cardiovascular: Regular rate and rhythm. No murmurs, gallops or rubs. Normal capillary refill. No edema. Gastrointestinal: Abdomen is soft and non tender. Nondistended. Normal active bowel sounds. Neurological: Alert and oriented x3. Cranial nerves II through XII show no acute deficits on my exam. No focal neurologic deficits in the extremities. Equal strength and sensation. Normal coordination. No change in voice. Skin: Warm and dry. Musculoskeletal: Extremities are nontender. Full range of motion. No tenderness in palpation of the cervical, thoracic and lumbar spine. DIFFERENTIAL DIAGNOSIS: After history and physical exam, differential diagnosis was considered for patient with dizziness earlier, seems better, normal neuro exam. Medical Decision Making Data Points Result Diagram: 03/09/192 03/09/19 2212 Laboratory Hematology Test 03/09/19 22:12 White Blood Count 6.0 k/uL (4.5-11.0) Red Blood Count 4.93 M/uL (4.17-5.56) Hemoglobin 14.3 g/dL (12.0-16.0) Hematocrit 42.7 % (34.0-47.0) Mean Corpuscular Volume 86.5 fL (80.0-96.0) Mean Corpuscular Hemoglobin 29.0 pg (26.0-33.0) Mean Corpuscular Hemoglobin Concent 33.5 g/dL (32.0-36.0) Red Cell Distribution Width 14.1 % (11.5-14.5) Platelet Count 205 K/uL (150-450) Mean Platelet Volume 8.6 fL (7.2-11.1) Neutrophils (%) (Auto) 77.8 % (39.4-72.5) H Lymphocytes (%) (Auto) 9.1 % (17.6-49.6) L Monocytes (%) (Auto) 8.9 % (4.1-12.4) Eosinophils (%) (Auto) 3.3 % (0.4-6.7) Basophils (%) (Auto) 0.9 % (0.3-1.4) Nucleated RBC Relative Count (auto) 0.0 /100WBC Neutrophils # (Auto) 4.6 K/uL (2.0-7.4) Lymphocytes # (Auto) 0.5 K/uL (1.3-3.6) L Monocytes # (Auto) 0.5 K/uL (0.3-1.0) Eosinophils # (Auto) 0.2 K/uL (0.0-0.5) Basophils # (Auto) 0.1 K/uL (0.0-0.1) Nucleated RBC Absolute Count (auto) 0.00 K/uL Chemistry Test 03/09/19 22:12 Sodium Level 138 mmol/L (137-145) Potassium Level 3.9 mmol/L (3.5-5.0) Chloride Level 98 mmol/L (98-107) Carbon Dioxide Level 32 mmol/L (22-31) Blood Urea Nitrogen 15 mg/dl (7-18) Creatinine 0.90 mg/dl (0.52-1.04) Glomerular Filtration Rate Calc 59.8 Random Glucose 155 mg/dl (75-110) Calcium Level 8.4 mg/dl (8.4-10.2) Total Bilirubin 0.5 mg/dl (0.2-1.3) Aspartate Amino Transf (AST/SGOT) 32 U/L (0-35) Alanine Aminotransferase (ALT/SGPT) 38 U/L (0-56) Alkaline Phosphatase 74 U/L (0-126) Total Protein 7.7 g/dl (6.3-8.2) Albumin 4.4 g/dl (3.5-5.0) Coagulation Test 03/09/19 22:12 Prothrombin Time 32.5 seconds (12.0-14.4) Prothromb Time International Ratio 3.08 Urinalysis Test 03/09/19 21:30 Urine Color Colorless Urine Clarity Clear Urine pH 8.0 pH (4.8-9.5) Urine Specific Louin 1.004 Urine Protein Negative mg/dL (NEGATIVE) Urine Glucose (UA) Negative mg/dL (NEGATIVE) Urine Ketones Negative mg/dL (NEGATIVE) Urine Blood Negative (NEGATIVE) Urine Nitrite Negative (NEGATIVE) Urine Bilirubin Negative (NEGATIVE) Urine Urobilinogen Negative mg/dL (0.2-1.9) Urine Leukocyte Esterase Negative (NEGATIVE) Urine RBC 1 /HPF (0-2/HPF) Urine WBC 1 /HPF (0-5/HPF) Urine Squamous Epithelial Cells Few /LPF (</=FEW) Urine Bacteria Few /HPF (NONE-FEW) Urine Mucus None /HPF (NONE-FEW) EKG/Imaging Imaging Head CT scan without contrast COMPARISONS: Head CT scan without contrast dated September 04, 2018 ADDITIONAL PERTINENT HISTORY: Confusion with dizziness and weakness TECHNIQUE: Multiple axial images were obtained from the skull base to the vertex without IV contrast. One of the following dose optimization techniques was utilized in the performance of this exam: Automated exposure control; adjustment of the mA and/or kV according to the patient's size; or use of an iterative reconstruction technique. Specific details can be referenced in the facility's radiology CT exam operational policy. FINDINGS: Midline shift: Negative Ventricles: Mild enlargement of the lateral and third ventricles. This is stable from previous exam. Brain parenchyma: Confluent regions of decreased attenuation within the periventricular and subcortical white matter, nonspecific but likely repre senting small vessel ischemic change on a chronic basis. No intraparenchymal hemorrhage. Extra-axial spaces: Mild cerebral atrophy. Intracranial vasculature: Cavernous internal carotid and distal vertebral artery calcifications. Osseous structures: Negative Paranasal sinuses and mastoid air cells: Negative Surrounding soft tissues and orbits: Negative IMPRESSION: 1. Age related changes as described above. 2. No evidence of acute intracranial pathology. Report Dictated By: Zach Bai MD at 03/09/2019 11:32 PM AP CHEST 03/09/2019 9:50 PM. INDICATION: confusion, dizziness COMPARISON: 07/28/2018. FINDINGS: Lungs are well-expanded. There is no suspicious consolidation. Chronic pleural parenchymal change at the left costophrenic sulcus. No pleural effusion or pneumothorax. Heart size is normal. Unchanged postoperative appearance of the mediastinum/sternum including sternotomy closure, coronary artery stent and implanted dual-chamber pacer. IMPRESSION: No acute abnormality or significant change. Report Dictated By: Eriberto Caballero MD at 03/09/2019 10:26 PM ED Course/Re-evaluation Clinical Indication for ER IV: Hydration, IV Access ED Course Labs unremarkable other than mild dehydration. Negative head CT scan as noted. Reviewed all this with the patient. Could be dehydration. No sign of UTI. Possible inner ear disturbance. Cannot rule out TIA but in chart review, is doing everything to prevent further TIA or strokes. Decision to Disposition Date: Mar 10, 2019 Decision to Disposition Time: 00:52 Depart Departure Latest Vital Signs Vital Signs Date Time Temp Pulse Resp B/P (MAP) Pulse Ox O2 Delivery O2 Flow Rate FiO2 03/09/19 22:42 62 138/77 (97) 96 03/09/19 21:42 10 03/09/19 21:30 97.8 Room Air Impression: Primary Impression: Dizziness Condition: Improved Disposition: HOME OR SELF-CARE Referrals: MANUEL TAN APRNP-C (PCP) Patient Instructions: Dizziness (ED) Additional Instructions: Your dizziness has resolved. We think that it may have been due to mild dehydration. Inner ear problems can do this as well. We also know you have had TIAs in the past and a TIA could present this way as well. You received some IV fluids while here in the hospital ER which should help with the dehydration. We encourage you to increase fluid intake. You should consider following up with ENT if still having problems with intermittent dizziness. You are already on preventive medicines for the various things that can cause stroke or TIA, so no changes in medicines at this time. BRAYAN DUARTE MD Mar 09, 2019 21:25
[2019-03-09 22:28] LABS: PLATELET COUNT, AUTOMATED 205 K/uL (150-450)
[2019-03-09 22:35] LABS: INR 3.08
--- NOTE | 2019-03-09 22:41 | RADIOLOGY IMAGING REPORT ---
FACILITY: [facility] - [place] PATIENT NAME: Reina Ocasio : 1935 MR: [id number] V: [id number] EXAM DATE: ORDERING PHYSICIAN: BRAYAN DUARTE TECHNOLOGIST: Location: Patient: Reina Ocasio : 1935 Visit/Account:[id number] Date of Sevice: 03/09/2019 AP CHEST 03/09/2019 9:50 PM. INDICATION: confusion, dizziness COMPARISON: 07/28/2018. FINDINGS: Lungs are well-expanded. There is no suspicious consolidation. Chronic pleural parenchymal change at the left costophrenic sulcus. No pleural effusion or pneumothorax. Heart size is normal. Unchanged postoperative appearance of the mediastinum/sternum including sternotomy closure, coronary artery st ent and implanted dual-chamber pacer. IMPRESSION: No acute abnormality or significant change. Report Dictated By: Eriberto Caballero MD at 03/09/2019 10:26 PM Report E-Signed By: Eriberto Caballero MD at 03/09/2019 10:32 PM WSN:[id number]
[2019-03-09 22:42] VITALS: BP 138/77
[2019-03-09] MEDS ORDERED: NS(*) 0.9% 1000 ML BAG 1,000 ML IV ONE (23:30)
--- NOTE | 2019-03-09 23:43 | RADIOLOGY IMAGING REPORT ---
FACILITY: [facility] [place] PATIENT NAME: Reina Ocasio : 1935 MR: [id number] V: [id number] EXAM DATE: ORDERING PHYSICIAN: BRAYAN DUARTE TECHNOLOGIST: Location: [facility] [place] Patient: Reina Ocasio : 1935 Visit/Account:[id number] Date of Sevice: 03/09/[address] scan without contrast COMPARISONS: Head CT scan without contrast dated September 04, 2018 ADDITIONAL PERTINENT HISTORY: Confusion with dizziness and weakness TECHNIQUE: Multiple axial images were obtained from the skull base to the vertex without IV contrast . One of the following dose optimization techniques was utilized in the performance of this exam: Aut omated exposure control; adjustment of the mA and/or kV according to the patient's size; or use of an iterative reconstruction technique. Specific details can be referenced in the facility's radiology CT exam operational policy. FINDINGS: Midline shift: Negative Ventricles: Mild enlargement of the lateral and third ventricles. This is stable from previous exam. Brain parenchyma: Confluent regions of decreased attenuation within the periventricular and subcorti francois white matter, nonspecific but likely representing small vessel ischemic change on a chronic basis . No intraparenchymal hemorrhage. Extra-axial spaces: Mild cerebral atrophy. Intracranial vasculature: Cavernous internal carotid and distal vertebral artery calcifications. Osseous structures: Negative Paranasal sinuses and mastoid air cells: Negative Surrounding soft tissues and orbits: Negative IMPRESSION: 1. Age related changes as described above. 2. No evidence of acute intracranial pathology. Report Dictated By: Zach Bai MD at 03/09/2019 11:32 PM Report E-Signed By: Zach Bai MD at 03/09/2019 11:35 PM WSN:[id number]
[2019-03-12] MEDS ORDERED: MIRA50TA PO (11:19)
[2019-03-12] MEDS ORDERED: CARV12.577 PO (14:46)
== END 2019-03-10 01:19 | disposition home or self-care (01) ==
LOC: ER 21:22
DX: R42 Dizziness and giddiness (principal); E86.0 Dehydration
CPT/HCPCS: 70450; 71045; 81001; 85025; 85610; 99284; J7030; 82040; 82247; 82310; 82374; 82435; 82565; 82947; 84075; 84132; 84155; 84295; 84450; 84460; 84520